=== PATIENT | female | born 1955 | race Caucasian/White ===

== ENCOUNTER 2020-07-07 10:56 | Outpatient (CLI) | payer BC, SELFPAY ==
[2020-07-07 11:12] LABS: Basophils % 0.4 %; Eosinophils # 0.2 10^3/uL (0.0-0.8); Eosinophils % 3.4 %; Hematocrit 47.1 % (37.0-47.0); Hemoglobin 15.3 g/dL (11.5-15.3); Lymphocytes # 1.3 10^3/uL (0.8-4.8); Lymphocytes % 23.9 %; Mean Corpuscular HGB Conc 32.5 g/dL (30.0-36.0); Mean Corpuscular Hemoglobin 31.5 pg (28.0-34.0); Mean Corpuscular Volume 96.9 fL (81-99); Mean Platelet Volume 11.1 fL (7.4-10.4); Monocytes # 0.4 10^3/uL (0.2-0.9); Monocytes % 6.7 %; Neutrophils # 3.51 10^3/uL (1.8-7.7); Neutrophils % 65.4 %; Nucleated Red Blood Cells % 0 %; Platelet Count 267 10^3/cmm (130-400); Red Blood Count 4.86 10^6/uL (4.1-5.3); Red Cell Distribution Width 13.8 % (12.1-15.1); White Blood Count 5.4 10^3/uL (4.0-10.0)
[2020-07-07 11:48] LABS: 25 Hydroxy Vitamin D 35 ng/mL (30-100); Alanine Aminotransferase 38 U/L (0-33); Albumin Level 4.1 g/dL (3.5-5.2); Alkaline Phosphatase 78 IU/L (35-105); Anion Gap 16.3 (5-19); Aspartate Amino Transferase 24 U/L (0-32); Blood Urea Nitrogen 13 mg/dL (8-23); C Reactive Protein 13.2 mg/L (0.0-4.9); Calcium 9.9 mg/dL (8.5-10.5); Carbon Dioxide 26 mmol/L (22-29); Chloride 103 mmol/L (98-107); Globulin 2.9 g/dL (1.3-4.6); Glomerular Filtration Rate 63.2 mL/min (90-130); Glucose 78 mg/dL (65-115); Iron 85 ug/dL (37-145); Osmolality Calculated 291 mOsm/kg (285-295); Potassium 4.3 mmol/L (3.5-5.1); Sodium 141 mmol/L (136-145); Thyroid Stimulating Hormone 4.25 uIU/mL (0.27-4.20); Total Bilirubin 0.7 mg/dL (0.15-1.2); Vitamin B12 447 pg/mL (232-1245)
[2020-07-07 13:45] LABS: Estmated Average Glucose 111; Hemoglobin A1C 5.5 % (4.0-6.0)
[2020-07-07 14:13] LABS: Free T4 Free Thyroxine 1.71 ng/dL (0.82-1.77)
== END 2020-07-07 10:57 | disposition home or self-care (01) ==
LOC: LAB 11:00
PROVIDERS: Visit Provider Electrodiagnostic Medicine
DX: R73.01 Impaired fasting glucose (principal); E78.5 Hyperlipidemia, unspecified; E03.9 Hypothyroidism, unspecified; E66.01 Morbid (severe) obesity due to excess calories; E55.9 Vitamin D deficiency, unspecified; R53.81 Other malaise; R53.83 Other fatigue
CPT/HCPCS: 80053; 82306; 82607; 83036; 83540; 84439; 84443; 85025; 86140

== ENCOUNTER 2020-07-08 11:27 | Inpatient (IN) | payer SELFPAY ==
[2020-07-08] VITALS (9 sets, daily range): BP systolic 128–188; BP diastolic 58–104; PULSE 42–109; RESP 15–27; TEMP 36.2–36.9; O2SAT 94–99; BMI 67.1
--- NOTE | 2020-07-08 11:49 | ECG_ITS ---
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 Measurements Intervals [place] Rate: 40 P: VA: QRS: -63 QRSD: 148 T: 16 QT: 489 QTc: 400 Interpretive Statements POSSIBLY SINUS BRADYCARDIA INTRAVENTRICULAR CONDUCTION DELAY MARKED BASELINE ARTIFACT, LIMITING FURTHER INTERPRETATION CRITICAL TEST RESULT No previous ECG available for comparison Electronically Signed On 07-08-2020 21:42:49 SYSTEMS TEST TECHNICIAN by Leslie Porter M.D. [id number]
--- NOTE | 2020-07-08 11:50 | XR_ITS ---
WS: [id number] PORTABLE CHEST HISTORY: dyspnea/cough COMPARISON: None available. Lungs are clear. Mild haziness over both lungs is probably due to overlying soft tissue. No pneumonia . No pleural effusion or pneumothorax. Cardiac size: Normal. Mediastinum/Aorta: Normal mediastinum. No osseous abnormality seen. XR/XR chest 1V portable [id number] IMPRESSION: Unremarkable portable chest.
[2020-07-08 12:17] LABS: Basophils % 0.3 %; Eosinophils # 0.3 10^3/uL (0.0-0.8); Eosinophils % 3.3 %; Hematocrit 46.3 % (37.0-47.0); Lymphocytes # 2.6 10^3/uL (0.8-4.8); Lymphocytes % 28.8 %; Mean Corpuscular HGB Conc 32.4 g/dL (30.0-36.0); Mean Corpuscular Hemoglobin 31.6 pg (28.0-34.0); Mean Corpuscular Volume 97.7 fL (81-99); Mean Platelet Volume 10.5 fL (7.4-10.4); Monocytes # 0.6 10^3/uL (0.2-0.9); Monocytes % 6.2 %; Neutrophils # 5.43 10^3/uL (1.8-7.7); Neutrophils % 61.1 %; Nucleated Red Blood Cells % 0 %; Platelet Count 350 10^3/cmm (130-400); Red Blood Count 4.74 10^6/uL (4.1-5.3); Red Cell Distribution Width 13.6 % (12.1-15.1); White Blood Count 8.9 10^3/uL (4.0-10.0)
[2020-07-08 12:28] LABS: Troponin(5th) Baseline 13 ng/L (0-10)
--- NOTE | 2020-07-08 12:34 | ED_ITS ---
HPI - Syncope General: Chief Complaint: Syncope Stated Complaint: Passout episode Time Seen by Provider: 07/08/20 11:45 History of Present Illness: HPI narrative: 64 yo female presents to the ER with complaints of syncopal episode off and on for the last 2 weeks. She will get some epigastric discomfort occasionally she is not had any nausea vomiting or diarrhea denies any chest pain. When she arrived in triage her heart rate was in the low 40s and she was moderately symptomatic. She states the episodes are not related to any exertion frequently happen while she is just sitting at rest and she will pass out for several seconds. She is seen her primary care doctor and had no significant findings at that visit. She denies any history of heart disease denies any known history of diabetes. She is morbidly obese. MD complaint: loss of consciousness Onset (ago): week(s) (2) Prodromal symptoms: lightheaded Witnessed: Yes - by Bystander Context: at rest Injuries sustained associated with event: none Associated symptoms: Reports abdominal pain; Deny chest pain, fever(s), headache(s), lightheadedness, nausea, short of breath, vertigo or weakness History: seizure disorder, previous syncopal episode, seizure disorder, history of CAD, pacemaker, AICD and family history of sudden Treatments prior to arrival: none Review of Systems Const: Denies: fever(s) ENMT: Denies: throat pain, ear or mastoid pain, nasal discharge or nasal congestion Card: Denies: chest pain or lightheadedness Resp: Denies: dyspnea, productive cough or non-productive cough GI: Reports: abdominal pain; Denies: nausea : Denies: flank pain, difficulty voiding, dysuria, urinary frequency or urinary urgency Skin/Breast: Denies: rash or pruritus Neuro: Denies: headache(s) or vertigo PFS ED PFSH: Medical History Dyslipidemia Hypothyroidism Physical Exam Const: COMMON NORMALS: no acute distress GENERAL APPEARANCE: cooperative and comfortable ORIENTATION/CONSCIOUSNESS: Yes awake, Yes oriented to person, Yes oriented to place and Yes oriented to time HENMT: COMMON NORMALS: normocephalic, atraumatic and hearing grossly normal bilaterally HEAD & SCALP: normocephalic and atraumatic Neck/C-Spine: COMMON NORMALS: no JVD Resp: COMMON NORMALS: normal respiratory effort, No retractions, No use of accessory muscles and clear to auscultation bilaterally AUSCULTATION: clear to auscultation bilaterally Cardio: COMMON NORMALS: no JVD, regular rate, regular rhythm and No murmurs present (Cardio) RATE: regular rate RHYTHM: regular rhythm GI: COMMON NORMALS: Soft to palpation and No hepatosplenomegaly present AUSCULTATION: Yes normoactive bowel sounds PALPATION: Yes Soft to palpation, No Tenderness to palpation present (GI), No Guarding due to palpation present (GI) and Yes No hepatosplenomegaly present Extremity: COMMON NORMALS: normal to inspection, capillary refill normal, no clubbing, cyanosis or edema, no calf tenderness and no pedal edema Neuro: SENSORIUM/ORIENTATION: Yes oriented to person, Yes oriented to place and Yes oriented to time Skin: COMMON NORMALS: no rashes or lesions noted GENERAL SKIN EXAM: no rashes or lesions noted Course Vital Signs: Vital signs: Vital Signs Temperature 98.1 F 07/09/20 00:00 Pulse Rate 91 07/10/20 04:00 Respiratory Rate 13 07/10/20 04:00 Blood Pressure 133/75 07/10/20 04:00 Pulse Oximetry 98 07/10/20 04:00 MDM - Syncope MDM Narrative: Medical decision making narrative: Discussed with cardiology as well as with hospitalist. Patient initially presented in a profound bradycardia not look like an idioventricular rhythm reviewed with Dr. Robin. Will admit for further evaluation and likely pacemaker placement. Patient converted back to a regular rhythm with a rate in the 90s for the remainder of her ER stay and remained asymptomatic reviewed the findings with her and recommendations she is agreeable to staying. Lab Data: Labs: Lab Results 07/08/20 07/08/20 07/08/20 Range/Units 12:01 12:01 12:01 WBC 8.9 (4.0-10.0) 10^3/ uL RBC 4.74 (4.1-5.3) 10^6/u L Hgb 15.0 (11.5-15.3) g/dL Hct 46.3 (37.0-47.0) % MCV 97.7 (81-99) fL MCH 31.6 (28.0-34.0) pg MCHC 32.4 (30.0-36.0) g/dL RDW 13.6 (12.1-15.1) % Plt Count 350 (130-400) 10^3/c mm MPV 10.5 H (7.4-10.4) fL Neut % (Auto) 61.1 % Lymph % (Auto) 28.8 % [place] % (Auto) 6.2 % Eos % (Auto) 3.3 % Baso % (Auto) 0.3 % Neut # (Auto) 5.43 (1.8-7.7) 10^3/u L Lymph # (Auto) 2.6 (0.8-4.8) 10^3/u L [place] # (Auto) 0.6 (0.2-0.9) 10^3/u L Eos # (Auto) 0.3 (0.0-0.8) 10^3/u L Baso # (Auto) 0.0 (0.0-0.1) 10^3/u L Nucleated RBC % (a uto) 0 % Nucleated RBCs # 0.0 /100WBC Sodium 135 L (136-145) mmol/L Potassium 4.0 (3.5-5.1) mmol/L Chloride 98 (98-107) mmol/L Carbon Dioxide 25 (22-29) mmol/L Anion Gap 16.0 (5-19) BUN 15 (8-23) mg/dL Creatinine 0.9 (0.5-0.9) mg/dL GFR Calculation 63.2 L (90-130) mL/min Glucose 138 H (65-115) mg/dL Calculated Osmolal ity 283 L (285-295) mOsm/k g Calcium 9.8 (8.5-10.5) mg/dL Total Bilirubin 0.7 (0.15-1.2) mg/dL AST 18 (0-32) U/L ALT 33 (0-33) U/L Alkaline Phosphata se 73 (35-105) IU/L Creatine Kinase 41 (26-192) U/L Troponin T Baselin e 13 H (0-10) ng/L Troponin T 120 [place] (0-10) ng/L Delta Troponin T (0-10) ABS# Total Protein 6.9 (6.6-8.7) g/dL Albumin 3.9 (3.5-5.2) g/dL Globulin 3.0 (1.3-4.6) g/dL TSH 3.94 (0.27-4.20) uIU/ mL Free T4 1.66 (0.82-1.77) ng/d L 07/08/20 Range/Units 14:04 WBC (4.0-10.0) 10^3/ uL RBC (4.1-5.3) 10^6/u L Hgb (11.5-15.3) g/dL Hct (37.0-47.0) % MCV (81-99) fL MCH (28.0-34.0) pg MCHC (30.0-36.0) g/dL RDW (12.1-15.1) % Plt Count (130-400) 10^3/c mm MPV (7.4-10.4) fL Neut % (Auto) % Lymph % (Auto) % [place] % (Auto) % Eos % (Auto) % Baso % (Auto) % Neut # (Auto) (1.8-7.7) 10^3/u L Lymph # (Auto) (0.8-4.8) 10^3/u L [place] # (Auto) (0.2-0.9) 10^3/u L Eos # (Auto) (0.0-0.8) 10^3/u L Baso # (Auto) (0.0-0.1) 10^3/u L Nucleated RBC % (a uto) % Nucleated RBCs # /100WBC Sodium (136-145) mmol/L Potassium (3.5-5.1) mmol/L Chloride (98-107) mmol/L Carbon Dioxide (22-29) mmol/L Anion Gap (5-19) BUN (8-23) mg/dL Creatinine (0.5-0.9) mg/dL GFR Calculation (90-130) mL/min Glucose (65-115) mg/dL Calculated Osmolal ity (285-295) mOsm/k g Calcium (8.5-10.5) mg/dL Total Bilirubin (0.15-1.2) mg/dL AST (0-32) U/L ALT (0-33) U/L Alkaline Phosphata se (35-105) IU/L Creatine Kinase (26-192) U/L Troponin T Baselin e (0-10) ng/L Troponin T 120 [place] 12.15 H (0-10) ng/L Delta Troponin T -0.85 L (0-10) ABS# Total Protein (6.6-8.7) g/dL Albumin (3.5-5.2) g/dL Globulin (1.3-4.6) g/dL TSH (0.27-4.20) uIU/ mL Free T4 (0.82-1.77) ng/d L Discharge Plan Discharge Patient Disposition: Admitted As Inpatient Admit Provider: Jona Cristobal Clinical Impression: Bradycardia, Syncope, Hypothyroidism Condition: Stable Coding Level of Care Code ED Stenotype Operator for Kelli Ramirez
[2020-07-08 12:36] LABS: Alanine Aminotransferase 33 U/L (0-33); Albumin Level 3.9 g/dL (3.5-5.2); Alkaline Phosphatase 73 IU/L (35-105); Aspartate Amino Transferase 18 U/L (0-32); Blood Urea Nitrogen 15 mg/dL (8-23); Calcium 9.8 mg/dL (8.5-10.5); Carbon Dioxide 25 mmol/L (22-29); Chloride 98 mmol/L (98-107); Creatine Phosphokinase 41 U/L (26-192); Glomerular Filtration Rate 63.2 mL/min (90-130); Glucose 138 mg/dL (65-115); Osmolality Calculated 283 mOsm/kg (285-295); Sodium 135 mmol/L (136-145); Thyroid Stimulating Hormone 3.94 uIU/mL (0.27-4.20); Total Bilirubin 0.7 mg/dL (0.15-1.2); Total Protein 6.9 g/dL (6.6-8.7)
--- NOTE | 2020-07-08 12:39 | CT_ITS ---
WS: [id number] CT ABDOMEN AND PELVIS WITH CONTRAST HISTORY: Abdominal pain with bloating and pressure after eating. TECHNIQUE: Imaging performed of the abdomen and pelvis with IV contrast. Single phase imaging of the abdomen. Coronal and sagittal reformats are submitted. All CT scans at [facility] use at least one of these dose optimization techniques: automated exposure control; mA and/or kV adjustment per patient size (includes targeted exams where dose is matched to clinical indication); or iterativ e reconstruction. IV CONTRAST: Omnipaque 350; 95 mL IV. Oral contrast: No DLP: 1764.64 mGy.cm COMPARISON: None available. Lower thorax: 7 mm RIGHT pulmonary lymph node. Heart is normal size. No hiatal hernia. Liver/biliary system: Normal size with no intrahepatic dilatation. Gallbladder: Gallbladder is normally distended and contains a large calcification measuring 2.7 cm. N o adjacent inflammation or fluid. No bile duct dilatation. Pancreas: Mildly lobulated pancreas. No mass identified. Spleen: Normal. Adrenal glands: Normal. Right kidney: Normal. Left kidney: Cortical thinning lower pole LEFT kidney with a few calcifications in the cortical thinn ing. No solid mass or obstruction. Aorta: Normal. Lymphadenopathy: None. Free fluid: None. GI tract: Appendix is not definitely visualized. No GI tract obstruction. Numerous diverticula in the descending and sigmoid colon. No acute inflammation. Abdominal wall: Unremarkable abdominal wall. No hernia. Pelvis: Prior hysterectomy. Negative urinary bladder. No free fluid or adenopathy. Bones: Mild degenerative disc disease at L5-S1. CT/CT abdomen pelvis w con* [id number] IMPRESSION: 1. Cholelithiasis without acute cholecystitis. There is a large 2.7 cm stone i n the gallbladder lumen. 2. Distal colonic diverticulosis without evidence for acute diverticulitis. 3. No ascites or adenopathy.
[2020-07-08] MEDS: iohexol 350 mg/mL 100 mL Btl IV (13:12)
--- NOTE | 2020-07-08 13:49 | ECG_ITS ---
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 Measurements Intervals [place] Rate: 78 P: 9 AK: 221 QRS: -45 QRSD: 156 T: 28 QT: 419 QTc: 478 Interpretive Statements SINUS RHYTHM WITH SINUS ARRHYTHMIA WITH FIRST DEGREE AV BLOCK RIGHT BUNDLE BRANCH BLOCK [120+ ms QRS DURATION, UPRIGHT V1, 40+ ms S IN I/aVL/V4/V5/V6] LEFT ANTERIOR FASCICULAR BLOCK [QRS AXIS <= -45, QR IN I, RS IN II] POSSIBLE ANTERIOR MYOCARDIAL INFARCTION , OF INDETERMINATE AGE [30 ms Q WAVE IN V3/V4, OR R < 0.2 mV IN V4] Compared to ECG 07/08/2020 11:45:40 First degree AV block now present Right bundle-branch block now present Left anterior fascicular block now present Myocardial infarct finding now present Idioventricular rhythm no longer present Electronically Signed On 07-08-2020 21:55:19 HOURLY MANAGER by Leslie Porter M.D. [id number]
[2020-07-08 14:01] LABS: Free T4 Free Thyroxine 1.66 ng/dL (0.82-1.77)
[2020-07-08 14:30] LABS: Troponin 5 2HR 12.15 ng/L (0-10)
[2020-07-08 14:34] LABS: Troponin 5 2HR Delta -0.85 ABS# (0-10)
--- NOTE | 2020-07-08 15:56 | PM.CONSULT ---
Providers/Reason For Consult Consulting Physican/Specialty*: Michael Lopez MD/ Cardiology Reason for Consult*: Bradycardia/syncope Requesting Physcian: Dr Fenton Attending Physician: Dr Cristobal History of Present Illness History of Present Illness Melony Che is a 64 year old female with PMH of dyslipidemia and hypothyroidism presented to the ER with 2 weeks of intermittent syncopal episodes. According to patient, she has been noticing multiple syncopal episodes that started last week Tuesday. Mostly happen at night.She can feel these episodes coming. Sometimes associated with dizziness. No falls. She has epigastric discomfort for about the same duration and occasional right sided chest pain. Today she was also having shaking episodes. In the ER she had bradycardic episode and EKG had significant artifact but likely had a high grade AV block. Troponin negative. Review of Systems Eyes: Denies: change in vision ENMT: Denies: throat pain Card: Reports: chest pain, lightheadedness and syncope Resp: Denies: dyspnea GI: Reports: abdominal pain Neuro: Denies: headache(s) Psych: Denies: anxiety Endo: Denies: polyuria Meds/Allergies Home Medications and Allergies Home Medications Medication Instructions Recorded Confirmed Last Taken Type atorvastatin 40 mg PO QPM 07/08/20 07/08/20 07/04/20 22:00 History levothyroxine 50 mcg PO DAILY 07/08/20 07/08/20 07/08/20 07:00 History Allergies Allergy/AdvReac Type Severity Reaction Status Date / Time bacitracin Allergy Unknown Verified 07/08/20 11:38 [From Neosporin ([id number])] latex Allergy ALGY-Rash Verified 07/08/20 11:38 neomycin Allergy Unknown Verified 07/08/20 11:38 [From Neosporin ([id number])] polymyxin B Allergy Unknown Verified 07/08/20 11:38 [From Neosporin ([id number])] PFSH Acute PFSH: Medical History (Updated 07/08/20 @ 22:36 by Michael Lopez M.D) Dyslipidemia Hypothyroidism Vitals/I&O/Wt Last Vital Signs Temp 97.1 F L 07/08/20 11:33 Pulse 77 07/08/20 15:12 Resp 15 07/08/20 15:12 BP 171/97 07/08/20 15:12 Pulse Ox 97 07/08/20 15:12 Weight last 48 hrs Weight 344 lb Physical Exam Const: COMMON NORMALS: patient oriented x3 HENMT: COMMON NORMALS: normocephalic HEAD & SCALP: normocephalic Eye: COMMON NORMALS: Equal, round and reactive pupils present PUPIL: Yes Equal, round and reactive pupils present Neck/C-Spine: COMMON NORMALS: full ROM Resp: COMMON NORMALS: normal respiratory effort and clear to auscultation bilaterally AUSCULTATION: clear to auscultation bilaterally Cardio: COMMON NORMALS: regular rhythm, S1 normal heart sound present and S2 normal heart sound present RHYTHM: regular rhythm HEART SOUNDS: S1 normal heart sound present and S2 normal heart sound present GI: COMMON NORMALS: Normal to inspection, nondistended, normoactive bowel sounds present and Soft to palpation PALPATION: Yes Soft to palpation Extremity: NARRATIVE EXTREMITY EXAM: Has significant bilateral lymphedema Neuro: COMMON NORMALS: patient oriented x3 A&P Assessment and plan (1) Syncope: Status: Acute (2) Hypothyroidism: Status: Acute (3) Dyslipidemia: Status: Acute (4) Bradycardia: Status: Acute Patient has been having intermittent syncopal episodes. Was found to have significant bradycardia on presentation. Her initial EKG had significant artifact but likely high degree AV block/third degree av block however that was transient and heart rates improved to 80-90s. Given her syncopal episodes, likely AV block and chest pain, will proceed with coronary angiography tomorrow morning Tele monitoring. If heart rates drop and telt shows high degree AV block, will proceed will temporary pacemaker. Keep pacing pads on. Dopamine in case of significant bradycardia and AV block. Avoid rate controlling agents. NPO past midnight Thank you for involving us with care of this patient. We will continue to follow. Please call with questions Coding Level of Care Code Acute Locomotive Crane Operator Helper for [facility] Fwd Diagnoses Syncope R55 Hypothyroidism E03.9 Dyslipidemia E78.5 Bradycardia R00.1
--- NOTE | 2020-07-08 16:34 | PC.NURSE ---
report given to deep becerra
--- NOTE | 2020-07-08 17:24 | PM.HP ---
Providers/Chief Complaint Admitting Physician: Jona Cristobal MD Chief Complaint: Passout episodes History of Present Illness Melony Che is a 64 year old female with PMH of DLD and hypothyroidism came in with c/o recurrent episodes of passing out started about a week back.Each episodes last about 15-20 secs accompanied with shaking of body followed by regain of consciousness,she deny any confusion after regaining consciousness.She is also complaining of rt sided chest tightness.She Upon arrival in the ER she was worked up for recurrent syncopal episodes. 1st EKG which was done is markedly limited by artifacts. Subsequent EKG : SINUS RHYTHM WITH SINUS ARRHYTHMIA WITH FIRST DEGREE AV BLOCK. RIGHT BUNDLE BRANCH BLOCK. LEFT ANTERIOR FASCICULAR BLOCK. SINUS RHYTHM WITH FIRST DEGREE AV BLOCK LEFT AXIS DEVIATION [QRS AXIS < -30] . RIGHT BUNDLE BRANCH BLOCK. C.T head without : No evidence of active or acute intracranial pathologic process, hemorrhage, or trauma. C.T Abdomen and Pelvis with contrast : Cholelithiasis without acute cholecystitis. There is a large 2.7 cm stone in the gallbladder lumen. Pertinent Labs : Troponin : Baseline : 13, 2H : 12.15 2H D: -0.85, 6H : 11.74 , 6H D: -1.26 TSH : 3.94, Free T4 : 1.66 Review of Systems Const: Denies: fever(s), chills, body aches, change in appetite or diaphoresis Card: Denies: palpitations, edema, swelling of feet/ankles, orthopnea or leg pain with exertion Resp: Denies: dyspnea, productive cough, wheezing or pain on inspiration GI: Denies: diarrhea or constipation : Denies: flank pain Musc: Denies: back pain, extremity pain or extremity swelling Neuro: Denies: headache(s) or difficulty walking Medications/Allergies Home Medications Medication Instructions Recorded Confirmed Last Taken Type atorvastatin 40 mg PO QPM 07/08/20 07/08/20 07/04/20 22:00 History levothyroxine 50 mcg PO DAILY 07/08/20 07/08/20 07/08/20 07:00 History Allergies Allergy/AdvReac Type Severity Reaction Status Date / Time bacitracin Allergy Unknown Verified 07/08/20 11:38 [From Neosporin (zav-mat-oyivy)] latex Allergy ALGY-Rash Verified 07/08/20 11:38 neomycin Allergy Unknown Verified 07/08/20 11:38 [From Neosporin (eyb-thm-gkdra)] polymyxin B Allergy Unknown Verified 07/08/20 11:38 [From Neosporin (gve-mtg-[id number])] Vitals/I&O/Wt Last Vital Signs Temp 97.1 F L 07/08/20 11:33 Pulse 77 07/08/20 15:12 Resp 15 07/08/20 15:12 BP 171/97 07/08/20 15:12 Pulse Ox 97 07/08/20 15:12 Weight last 48 hrs Weight 156.036 kg Physical Exam Const: COMMON NORMALS: patient oriented x3 HENMT: COMMON NORMALS: normocephalic, atraumatic, hearing grossly normal bilaterally and external ears normal HEAD & SCALP: normocephalic and atraumatic EXTERNAL EAR: Yes external ears normal Eye: COMMON NORMALS: no scleral icterus GENERAL EYE: appearance normal, both eyes and all related structures Chest: COMMONS NORMALS: normal inspection of the chest and normal palpation of entire chest wall CHEST: Yes Symmetrical chest wall rise Resp: COMMON NORMALS: normal respiratory effort, No retractions, No use of accessory muscles and clear to auscultation bilaterally EFFORT & INSPECTION: Yes symmetric chest movement AUSCULTATION: clear to auscultation bilaterally Cardio: COMMON NORMALS: regular rate, regular rhythm, S1 normal heart sound present, S2 normal heart sound present, No gallops present (Cardio), No murmurs present (Cardio), No rub (Cardio) and Peripheral pulses 2+ throughout RATE: regular rate RHYTHM: regular rhythm HEART SOUNDS: S1 normal heart sound present and S2 normal heart sound present PERIPHERAL PULSES: Peripheral pulses 2+ throughout GI: COMMON NORMALS: Normal to inspection, nondistended, normoactive bowel sounds present, Soft to palpation, non-tender, No hepatosplenomegaly present and no masses AUSCULTATION: Yes normoactive bowel sounds PALPATION: Yes Soft to palpation and Yes No hepatosplenomegaly present RECTAL EXAM: deferred Extremity: COMMON NORMALS: no clubbing, cyanosis or edema and no pedal edema Neuro: COMMON NORMALS: patient oriented x3 Data : 07/08/20 12:01 07/08/20 12:01 A&P Assessment and plan (1) Syncope: C.T Head without contrast : No evidence of active or acute intracranial pathologic process, hemorrhage, or trauma 2D Echo Carotid Doppler B/L L/E Doppler vein CTA chest with contrast. Tele Cardiology wants to proceed with CAG to r/o ischemia as a possible cause. Status: Acute (2) Hypothyroidism: Continue Levothyroxine Status: Acute (3) Dyslipidemia: Status: Acute Additional A&P Information DVT PPX: Lovenox 40 mg sc Daily Code Status :Full code Disposition :Home Attestations Medical Necessity Statement*: Patient needs to be in hospital for the evaluation and management of recurrent syncope.Anticipated length of stay greater then 2 midnights. Coding Level of Care Code Acute Supervisor Cell Operation for [facility] Fwd Diagnoses Syncope R55 Hypothyroidism E03.9 Dyslipidemia E78.5
--- NOTE | 2020-07-08 17:49 | ECG_ITS ---
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 Measurements Intervals [place] Rate: 86 P: -10 WI: 220 QRS: -37 QRSD: 159 T: 32 QT: 440 QTc: 528 Interpretive Statements SINUS RHYTHM WITH FIRST DEGREE AV BLOCK LEFT AXIS DEVIATION [QRS AXIS < -30] RIGHT BUNDLE BRANCH BLOCK [120+ ms QRS DURATION, UPRIGHT V1, 40+ ms S IN I/aVL/V4/V5/V6] ANTEROSEPTAL MYOCARDIAL INFARCTION , OF INDETERMINATE AGE [40+ ms Q WAVE IN V1-V4] Compared to ECG 07/08/2020 12:57:56 Left-axis deviation now present Sinus arrhythmia no longer present Left anterior fascicular block no longer present Myocardial infarct finding still present Electronically Signed On 07-08-2020 17:51:11 BUILDING MAINTENANCE ENGINEER by Leslie Porter M.D. [id number]
--- NOTE | 2020-07-08 17:51 | CTR_ITS ---
PROCEDURE INFORMATION: Exam: CT Head Without Contrast Exam date and time: 07/08/2020 5:52 PM Age: 64 years old Clinical indication: Syncope and collapse TECHNIQUE: Imaging protocol: Computed tomography of the head without contrast. Total images: 186 Radiation optimization: All CT scans at this facility use at least one of these dose optimization techniques: automated exposure control; mA and/or kV adjustment per patient size (includes targeted exams where dose is matched to clinical indication); or iterative reconstruction. COMPARISON: No relevant prior studies available. RADIATION DOSE METRICS: Total DLP (mGy-cm): 768.38 FINDINGS: Brain: Unremarkable. No hemorrhage. Unremarkable white matter. No mass effect. Cerebral ventricles: No ventriculomegaly. Bones/joints: Unremarkable. No acute fracture. Paranasal sinuses: Inclusion cyst left maxillary sinus. Mild chronic left ethmoid sinusitis. No evidence for active paranasal sinus disease. Mastoid air cells: Visualized mastoid air cells are well aerated. Soft tissues: Unremarkable. CT/CT head wo con* [id number] IMPRESSION: No evidence of active or acute intracranial pathologic process, hemorrhage, or trauma. Radiation Dose CTDIVOL = (mGy): DLP = 768.38 (mGy-cm)
[2020-07-08] MEDS: enoxaparin 40 mg/0.4 mL Syringe SUBCUT (18:10)
[2020-07-08] MEDS: hyDRALAzine 25 mg Tablet PO ×2 (18:14→19:47)
[2020-07-08 18:18] LABS: Magnesium 2.2 mg/dL (1.7-2.3); Troponin 5 6HR 11.74 ng/L (0-10)
[2020-07-08 18:25] LABS: Troponin 5 6HR Delta -1.26 ng/L (0-12)
--- NOTE | 2020-07-08 18:46 | PC.NURSE ---
PATIENT TOES BILATERALLY NOTED TO BE REDDENED AND COOL TO THE TOUCH. CAPILLARY REFILL EXACTLY [address] SILVA NOTIFIED. NO NEW ORDERS. SCD'S ORDERED, HOWEVER SIZE LARGE SCDS DO NOT FIT HER CALVES AND THEY ARE THE LARGEST SIZE IN HOUSE. DR. LEYVA NOTIFIED.
[2020-07-08] MEDS: acetaminophen 325 mg Tablet 650 MG PO (19:47)
[2020-07-08] MEDS: atorvastatin 40 mg Tablet PO (19:47)
--- NOTE | 2020-07-08 22:16 | PC.NURSE ---
Dr. Mcadams and Dr. Larsen notified of patient going into third degree heart block for short period of time, then having 3 significant pauses on the monitor. Patient stated I could feel it. Dr. Mcadams came to see patient. Dr. Larsen ordered to keep crash cart at bedside and keep pacer pads on patient in case of need of use. Patient is currently in SR at heart rate of 87.
[2020-07-09] VITALS (113 sets, daily range): BP systolic 76–196; BP diastolic 46–105; PULSE 0–103; RESP 0–36; TEMP 36.7; O2SAT 89–100
--- NOTE | 2020-07-09 03:36 | PC.NURSE ---
Upon getting up to bedside commode, patient has gone into 3rd degree heart block. This happened earlier in shift as well after getting patient up to bedside commode and doctors were notified.
--- NOTE | 2020-07-09 03:56 | PC.NURSE ---
Dr. Larsen notified of patient in a third degree block heart rate in the 30s-40s for about 10-15 minutes. Ordered to start low dose dopamine drip and transfer patient to ICU.
[2020-07-09] MEDS: DOPamine drip 400 MG/250 ML PREMIX 17.8 MG IV (04:08)
[2020-07-09 05:52] LABS: Basophils % 0.6 %; Eosinophils # 0.2 10^3/uL (0.0-0.8); Eosinophils % 2.7 %; Hematocrit 43.4 % (37.0-47.0); Hemoglobin 14.3 g/dL (11.5-15.3); Lymphocytes # 1.4 10^3/uL (0.8-4.8); Lymphocytes % 19.4 %; Mean Corpuscular HGB Conc 32.9 g/dL (30.0-36.0); Mean Corpuscular Hemoglobin 31.4 pg (28.0-34.0); Mean Corpuscular Volume 95.4 fL (81-99); Mean Platelet Volume 10.8 fL (7.4-10.4); Monocytes # 0.4 10^3/uL (0.2-0.9); Monocytes % 5.2 %; Neutrophils # 5.15 10^3/uL (1.8-7.7); Neutrophils % 71.8 %; Nucleated Red Blood Cells % 0 %; Platelet Count 265 10^3/cmm (130-400); Red Blood Count 4.55 10^6/uL (4.1-5.3); White Blood Count 7.2 10^3/uL (4.0-10.0)
[2020-07-09 06:06] LABS: Blood Urea Nitrogen 14 mg/dL (8-23); Calcium 9.4 mg/dL (8.5-10.5); Carbon Dioxide 25 mmol/L (22-29); Chloride 102 mmol/L (98-107); Glomerular Filtration Rate 84.5 mL/min (90-130); Glucose 120 mg/dL (65-115); Osmolality Calculated 286 mOsm/kg (285-295); Sodium 137 mmol/L (136-145)
[2020-07-09 06:07] LABS: Chol HDL Ratio 3.78 mg/dL (0.0-4.40); Cholesterol 155 mg/dL (0-200); HDL Cholesterol 41 mg/dL (60-100); LDL Cholesterol Calculated 92 mg/dL (50-129); LDL HDL Ratio 2.24 RATIO (0.00-3.22); Triglycerides 110 mg/dL (0-150)
[2020-07-09 06:13] LABS: Estmated Average Glucose 103; Hemoglobin A1C 5.2 % (4.0-6.0)
[2020-07-09] MEDS: sodium chloride 0.9% 1,000 ML 50 ML IV (06:20)
[2020-07-09] MEDS: diphenhydrAMINE 50 mg Capsule PO (06:21)
--- NOTE | 2020-07-09 06:35 | PC.NURSE ---
ASSUMING CARE Patient brought to ICU from CSU within 0400 hour. Patient is bradycardia and on dopamine drip at 3 mcg/kg/min. Patients MAP greater than 65. Patient already prepped for 0700 cath and additional IV access established via ultrasound machine.
[2020-07-09 06:36] LABS: Anion Gap 13.6 (5-19); Potassium 3.6 mmol/L (3.5-5.1)
--- NOTE | 2020-07-09 06:37 | PC.NURSE ---
SHIFT SUMMARY Patient has been in bed since arrival to unit. See previous note. Patient prepped for cath this AM. Cousin, Kitty Patino, called to check on her. Not listed, but patient gave verbal permission for nurse to give her information. Patients also called to check on her also and states he will come visit from 11-6 today. Both family members notified of cath at 0700 and possible need for pacemaker.
--- NOTE | 2020-07-09 07:00 | XACV_ITS ---
Exam Room: [facility] Ht: 152 cm Wt: 158 kg BSA: 2.71 m2 Gender: Female : 1955 Any Known Allergies: Other Exam Priority: Routine Procedure(s): Procedure Description: Diagnostic procedure Procedure Description: Left Heart Catheterization Procedure Description: Miscellaneous Procedure Description: Temporary Pacemaker Insertion Procedure Description: Coronary Angiography Diagnostic Cath Status: Urgent Diagnostic Findings * Indication: Patient has been having multiple episodes of syncopal episodes and found to have high degree AV block. Plan for coronary angiography and placement of temporary pacemaker. * No significant disease noted in the Left Main, LAD, Circumflex, or RCA coronary arteries. * Coronary angiography shows right dominance. Interventional Findings * Temporary pacemaker placement: After performing coronary angiography we proceeded with placement of temporary pacemaker. We obtained access with ultrasound in the right femoral vein. We placed a 6 Italian sheath. Temporary pacemaker wire was advanced under fluoroscopic guidance and was placed in the RV. Pacemaker was checked at a rate of 70 bpm and output of 10 MA. Continuous pacing was noted. We sutured the sheath and the pacemaker wire in place. Heart rate was set at back up rate of 50 bpm. Patient left the School Administrator in a stable condition.. Conclusions 1. Successful placement of temporary pacemaker. 2. No significant disease noted in the Left Main, LAD, Circumflex, or RCA coronary arteries. Recommendations * Transfer back to ICU. * Consult Dr Lam for placement of permanent pacemaker as patient has high degree AV block with multiple syncopal episodes and no reversible causes. * Close monitoring of rhythm for loss of capture in the ICU. Interventional RX Recommendation: medical therapy and/or counseling Diagnostic RX Recommendation: medical therapy and/or counseling Pressures Phase:Rest AO : 135 / 57 ( 75 ) @ 1:40:00 AM 88 / 57 ( 68 ) @ 1:41:00 AM 118 / 41 ( 49 ) @ 1:49:00 AM 126 / 58 ( 76 ) @ 1:50:00 AM 98 / 63 ( 75 ) @ 1:50:00 AM 117 / 66 ( 78 ) @ 1:50:00 AM 0 / -2 ( -2 ) @ 1:54:00 AM LV : 118 / 18 / @ 1:50:00 AM 118 / 15 / @ 1:50:00 AM Valves Phase:DefaultPhase AV : 0.0 @ 8:08:11 AM AV Mean Gradient: 0.0 @ 8:08:11 AM Clinical Evaluation EBL: 5mL-10mL Procedural Details Procedure Consent Obtained. Pre-Procedure Time Out. Identified patient by full name and date of as verbalized by the patient/guarantor. Does the consent match the physician's order: Yes. Accurate & Complete Informed Consent: Yes. Inpatient/Outpatient History & Physical on Chart: Yes. If H&P is completed, is and addenduem needed: No; If yes, is the addendum complete: N/A. Visualize and Verify Site with Patient/Guarantor: N/A. Relevant Radiology Images available: N/A. Pre-op teaching completed and patient verbalized understanding. The risks, benefits, and alternatives of sedation and/or procedure were discussed by physician. The patient agrees to continue. Procedure started. [facility] Clinical Fraility Score: 3: Managing Well. School Administrator Indications: Other- complete heart block. Chest Pain Symptom Assessment: Atypical Angina. Cardiovascular Instability: No. Correct patient, site and procedure confirmed by cath team. PERRLA. Strong, equal hand circular saw edge fuser bilaterally. Lungs clear x 5 lobes. IV Site on Arrival: 20 gauge in the right anticubital. IV Site on Arrival: 20 gauge in the left anticubital. IV Fluids: 0.9% NaCl at KVO. 0 mL infused prior to labor service representative. Pre Procedural Pulses: right radial was 3+. Oxygen started at 2liters/min via nasal canula. bilateral groins was prepped with chloroprep then draped in the usual sterile fashion. AP pads applied to patient. Physician notified. Baseline sample Acquired. HR: 50 BPM. Dopamine 3mcg/kg/min. Dopamine increased to 4 mcg/kg/min. Physician arrived. Physician scrubbed in. Immediate Pre-Procedure Time Out. Equipment: 6F - Radial. Cardiac Cath Pack. ACIST Manifold Kit Model BT 2000. Heparinized Saline (2 units/mL), 1000 mL bag. Correct Patient: Yes; Correct Procedure: Yes; Correct Site: Yes; Correct Patient Position: Yes; Correct Supplies: Yes; Dried Flammable Prep: Yes; Blood Products Available: N/A;. Lidocaine 1% infiltrated to the right radial. Arterial access obtained. Lidocaine 1% infiltrated to the right groin. Physician will be placing temporary pacemaker using right femoral vein. Venous access obtained with a micropuncture set. Pt placed on oxymask. A 5 eritrean TIG catheter in over wire through right radial sheath. Multiple views taken of left coronary artery. Catheter redirected to the RCA. Catheter removed over the exchange wire. A 5 eritrean JR4 catheter in over wire. Multiple views taken of right coronary artery. EDP Sample taken: LV 118/18,40; HR: 52 BPM; SpO2: 92%. Pullback taken: LV 118/15,41; AO 126/58(76); Mean: 0mmHg, Peak to Peak: 0mmHg, SEP: 2sec/min; HR: 38 BPM; SpO2: 91%. Catheter removed over the exchange wire. Temporary pacemaker inserted through right femoral venous sheath. Pacemaker attached. Set to Async. Rate: 60. MA: 2. TEMPORARY PACEMAKER: Lot #[id number]. MA changed to 1. MA changed to 0.5. MA changed to 1. Rate decreased to 50. Physician scrubbed out. A TR Band was successful obtaining hemostatsis at the Right Radial artery insertion site. TR band placed. Hemostasis obtained. Venous Sheath(s) sutured into position with 2-0 silk and sterile 4x4's and Op-site applied over the site. No oozing or signs and symptoms of hematoma noted. A Suture was successful obtaining hemostatsis at the Right Femoral vein insertion site. Post Procedure: Pulses reassessed and unchanged. PERRLA. Strong, equal hand circular saw edge fuser bilaterally. No VTE prophylaxis required. Medication's Wasted: Lidocaine 1% = 2 mL. Medication's Wasted: Heparin = 3000 units. Medication's Wasted: Other = fentanyl 75 mcg. Total IV fluids: 50 mL. Medication's Wasted: Nitro = 49.8 mg. Contrast type used: Omnipaque 300 mgI/mL, 500 mL bottle. Post-op diagnosis: complete heart block, non obstructive CAD. Complications: none. Estimated blood loss: 5mL-10mL. Procedure completed. Patient transferred by bed to ICU. Vital chart was stopped. Access Site Site: Right Radial artery Sheath Size: 6 Fr Hemostasis Method: TR Band Hemostasis Success: Successful Site: Right Femoral vein Sheath Size: 6 Fr Hemostasis Method: Suture Hemostasis Success: Successful Procedure Medications Start: 7:23 AM Stop: 7:23 AM Medication: Versed Amount: 1 mg Route: I.V. Start: 7:23 AM Stop: 7:23 AM Medication: Fentanyl Amount: 25 mcg Route: I.V. Start: 7:27 AM Stop: 7:27 AM Medication: Versed Amount: 1 mg Route: I.V. Start: 7:30 AM Stop: 7:30 AM Medication: Nitrogylcerin Amount: 200 mcg Route: I.A. Start: 7:40 AM Stop: 7:40 AM Medication: Heparin Amount: 3000 units Route: I.V. I, the attending physician, have reviewed and verified all procedure medications. Yes, all medications given per verbal order History/Risk Factors Hypertension: No Dyslipidemia: Yes Peripheral Arterial Disease (PAD): No Myocardial Infarction (DC): No Obesity: No Renal Disease: No Prior Interventions PCI: No CABG: No Valve Surgery: No Report Signatures Finalized by Michael Lopez MD on 07/11/2020 05:48 PM
--- NOTE | 2020-07-09 07:00 | USCV_ITS ---
Melony Che Age: 64 Gender: F : 1955 Exam Date: 07/09/2020 06:25 Ordering Phys: Jona Cristobal MD Technologist: Nicholas Perry [place] [facility] [place]: BLE SWELLING HISTORY: Lower extremity swelling. PROCEDURES: Venous duplex imaging was performed in bilateral lower extremities. The following venous structures were evaluated: common femoral vein, profunda vein, proximal portion of the greater saphenous vein, superficial femoral vein, and the popliteal vein. In addition, the posterior tibial veins were evaluated. Serial compression, augmentation maneuvers, and spectral Doppler flow evaluation were performed. FINDINGS: Normal 2-D Doppler and augmentation and compressibility throughout the lower extremity venous structures. Additional imaging through the proximal calf veins also reveals no thrombus. Limited evaluation of the greater saphenous vein is patent with no thrombus.. Examination was technically limited due to body habitus. CONCLUSIONS No DVT bilateral lower extremities. Quality limited by body habitus. Dr. Chayo Barajas DO (Electronically Signed) Final Date: 09 July 2020 08:33 S
--- NOTE | 2020-07-09 07:00 | USCV_ITS ---
Melony Che Age: 64 Gender: F : 1955 Exam Date: 07/09/2020 06:36 Ordering Phys: Jona Cristobal MD Technologist: Nicholas Perry Exam Location: [facility] [place] Indication: SYNCOPE Risk Factors: Previous Vascular Surgery: Right Brachial BP: / Left Brachial BP: / Right Left Velocity (cm/s) Spectral Plaque Velocity (cm/s) Spectral Plaque Syst/Diast Broadening Syst/Diast Broadening 79.40/ 12.10 Prox CCA 87.10 / 7.70 79.40/ 12.10 Mid CCA 93.70 / 13.20 90.40/ 14.30 Distal CCA 94.80 / 14.30 88.20/ 17.60 Prox ICA 109.20/ 19.80 79.40/ 14.30 Mid ICA 100.30/ 26.50 88.20/ 25.40 Distal ICA 79.70 / 21.10 102.50 ECA 118.00 0.98 ICA/CCA 1.15 Antegrade Vertebral Antegrade 45.10/ 7.00 cm/s 44.00/ 10.10 cm/s Tri Subclavian Tri 116.9 130.1 0 0 FINDINGS Comparison: none available. No significant elevation of systolic or diastolic velocities. Waveforms are normal. Minimal bilateral, intimal thickening with no elevation of velocity. CONCLUSIONS Bilateral ICA stenosis less than 50%. Minimal carotid atherosclerosis. Dr. Chayo Barajas DO (Electronically Signed) Final Date: 09 July 2020 08:31 S
--- NOTE | 2020-07-09 07:05 | PC.NURSE ---
0700-to clinical laboratory medical director.
--- NOTE | 2020-07-09 08:27 | PC.NURSE ---
recd.from ccl with temporary pacer in right groin. rate 60. sensitivity 5 output at 1.
--- NOTE | 2020-07-09 09:21 | PC.CHAP ---
Pastoral Care Encounter/Spiritual Assessment Type of Contact [] Declined volunteer services director visit [] Patient/Family/Request visit [] Outpatient visit [] Follow-up visit [] Physician referral [] Code/Alert [x] Routine visit [] Staff referral [] Actively dying [] Patient sleeping [] Family support [] [] Out of room [] Palliative care [] [] Receiving care in room [] Pre-surgical visit [] Trauma [] Long length of stay [x] ICU visit [] Other: Relational/Emotional Strength [] Patient feels connected with others/family/visitors/staff [] Distress [] Loneliness/isolation [] Abandonment Spirituality of Patient [] Person of [place] [] Attends Jainism of their [place] [] Believes in Prayer [] Reads Bible or Gnosticism materials [] There are Spiritual issues to be addressed Solar Installation Supervisor Interventions [x] Prayer [] Active listening [] Non-anxious presence [] Spiritual/emotional support [] Crisis/trauma care [] Spiritual counseling [] Bereavement support [] Provided bereavement packet [] Provided Bible/devotional materials [] Provided toy/stuffed animal, coloring book to patient or family member [] Provided Communion [] Anointing/[place] [] Salvation [x] Completed spiritual assessment [] Other: Impact on Illness or Injury [] Angry [] Fearful [] Anxious [] Often cries [] Exhaustion [] Unable to work [] Unable to attend oriental orthodox [] Unable to walk/stand [] Unable to read [] Unable to drive [] Unable to eat/drink [] Unable to sleep [] Unable to be with family [] Patient intubated [] Other: Summary Time spent with patient
--- NOTE | 2020-07-09 09:36 | PM.CONSULT ---
Providers/Reason For Consult Consulting Physican/Specialty*: Dr. Lam/cardiothoracic surgery Reason for Consult*: Third-degree AV block/temporary pacemaker dependent Requesting Physcian: Dr. Lopez Attending Physician: Jona Cristobal MD History of Present Illness History of Present Illness Melony Che is a 64 year old female whom I was consulted on following left heart catheterization this morning as part of an evaluation for highly symptomatic, recurrent, and refractory episodes of bradycardia, which by history appear to have been occurring for the past week. Patient reports episodes of blacking out lasting up to 3 to 4 seconds as witnessed by her . This was indeed noted here at [facility]. She was evaluated by Dr. Lopez and left heart catheterization was performed this morning Which Revealed No Obstructive Coronary Artery Disease. She haD developed some episodes of bradycardia and sinus pauses last night while on the telemetry arnold which resulted in her being transferred to the ICU for continued monitoring prior to her catheterization this morning. During that procedure, she developed heart block with prolonged sinus pauses. A right femoral transvenous pacemaker has been placed. She is now resting comfortably in the ICU. I have been consulted for evaluation for dual chamber permanent pacemaker implantation. Review of Systems Const: Denies: fever(s), chills, change in appetite, change in weight, fatigue or night sweats Eyes: Denies: change in vision or blurry vision ENMT: Denies: odynophagia or hoarseness Card: Reports: lightheadedness, syncope, pre-syncope, dyspnea on exertion and orthopnea; Denies: chest pain, palpitations, irregular heart rhythm or edema Resp: Denies: dyspnea or productive cough GI: Denies: abdominal pain, nausea, vomiting, dysphagia, heartburn or change in bowel habits : Denies: dysuria, urinary frequency, urinary urgency or urinary hesitancy Musc: Denies: extremity pain or extremity swelling Skin/Breast: Denies: rash Neuro: Reports: dizziness; Denies: headache(s), numbness in extremities, weakness in extremities or sensory changes Psych: Denies: anxiety, depression or change in appetite Endo: Denies: polyuria, polydipsia or cold intolerance [place]/Lymph: Denies: easy bruising, easy bleeding, petechiae or enlarged lymph nodes Meds/Allergies Home Medications and Allergies Home Medications Medication Instructions Recorded Confirmed Last Taken Type atorvastatin 40 mg PO QPM 07/08/20 07/08/20 07/04/20 22:00 History levothyroxine 50 mcg PO DAILY 07/08/20 07/08/20 07/08/20 07:00 History Allergies Allergy/AdvReac Type Severity Reaction Status Date / Time bacitracin Allergy Unknown Verified 07/08/20 11:38 [From Neosporin ([id number])] latex Allergy ALGY-Rash Verified 07/08/20 11:38 neomycin Allergy Unknown Verified 07/08/20 11:38 [From Neosporin ([id number])] polymyxin B Allergy Unknown Verified 07/08/20 11:38 [From Neosporin ([id number])] Current Medications Current Medications Generic Name Dose Route Start Last Admin Trade Name Freq PRN Reason Stop Dose Admin Acetaminophen 650 mg 07/08/20 17:16 07/08/20 19:47 Acetaminophen 325 Mg Tablet PO 650 mg Q6H PRN Administration Mild/Mod Pain Or Temp >/= 101 Atorvastatin Calcium 40 mg 07/08/20 21:00 07/08/20 19:47 Atorvastatin 40 Mg Tablet PO 40 mg DAILY@2100 LOUISE Administration Enoxaparin Sodium 40 mg 07/08/20 17:30 07/08/20 18:10 Enoxaparin 40 Mg/0.4 Ml Syringe SUBCUT 40 mg Q24H LOUISE Administration Hydralazine HCl 25 mg 07/08/20 17:10 07/08/20 19:47 Hydralazine 25 Mg Tablet PO 25 mg TID LOUISE Administration Sodium Chloride 1,000 mls @ 50 mls/hr 07/09/20 06:00 07/09/20 06:20 Sodium Chloride 0.9% IV 07/10/20 01:59 50 mls/hr .Q20H ONE Administration Dopamine HCl/Dextrose 400 mg in 250 mls @ 17.758 mls/hr 07/09/20 04:00 07/09/20 04:11 Intropin Drip IV 1.5 mcg/kg/min CONT LOUISE 8.9 mls/hr Infusion Protocol 3 MCG/KG/MIN PFSH Acute PFSH: Medical History Dyslipidemia Hypothyroidism Vitals/I&O/Wt Last Vital Signs Temp 98.1 F 07/09/20 00:00 Pulse 88 07/09/20 06:20 Resp 24 H 07/09/20 06:20 BP 151/63 07/09/20 06:20 Pulse Ox 97 07/09/20 06:20 07/08/20 07/09/20 07/09/20 22:59 06:59 14:59 Intake Total 360 / 360 100.89 / 460.89 Balance 360 / 360 100.89 / 460.89 Weight last 48 hrs Weight 346 lb 12.8 oz Weight 348 lb Weight 344 lb Physical Exam Const: COMMON NORMALS: patient oriented x3 and alert ORIENTATION/CONSCIOUSNESS: Yes oriented to person, Yes oriented to place and Yes oriented to time HENMT: COMMON NORMALS: normocephalic HEAD & SCALP: normocephalic Neck/C-Spine: COMMON NORMALS: supple, no JVD and No carotid bruits GENERAL: Yes trachea midline CERVICAL SPINE: Yes cervical ROM normal Chest: COMMONS NORMALS: normal inspection of the chest and normal palpation of entire chest wall Resp: COMMON NORMALS: normal respiratory effort, No use of accessory muscles, clear to auscultation bilaterally and percussion normal EFFORT & INSPECTION: Yes able to speak in complete sentences and Yes symmetric chest movement AUSCULTATION: clear to auscultation bilaterally PERCUSSION: percussion normal Cardio: COMMON NORMALS: no JVD, regular rate, regular rhythm, S1 normal heart sound present, S2 normal heart sound present, No gallops present (Cardio), No murmurs present (Cardio) and No rub (Cardio) JUGULAR VENOUS DISTENTION: no JVD RATE: regular rate RHYTHM: regular rhythm HEART SOUNDS: S1 normal heart sound present and S2 normal heart sound present PERIPHERAL PULSES: radial pulses present positive right (TR band in place) and positive left 2+ Extremity: OTHER: 1+ pretibial edema bilaterally Neuro: COMMON NORMALS: patient oriented x3, no focal motor deficits and no sensory deficits noted SENSORIUM/ORIENTATION: Yes alert, Yes oriented to person, Yes oriented to place and Yes oriented to time GAIT: Yes Unable to assess gait A&P Assessment and plan (1) Bradycardia: I have discussed with Ms. Che relation to consider permanent pacemaker implantation. Rationale for this was carefully reviewed and she is in agreement. Due to inclement weather and has been traveling conditions, we were unable to obtain a [employer] employment program representative on site until tomorrow mid morning. Details and risks of the procedure were carefully and frankly discussed. Risks reviewed include the possibility of , stroke, heart attack, major bleeding, perforation of heart or major vascular structure, infection, pneumonia, pneumothorax requiring chest tube, organ failure, failure to benefit, dislodgment of the leads requiring repositioning, prolonged hospital stay, pain after the procedure, need for further procedures, inability to complete the procedure, and need for long-term followup. All questions were answered. She is agreeable to proceed. Appropriate consents be provided for review and signature. We will continue close monitoring in the ICU until implantation can be completed. Status: Acute Consult Attestations Medical Necessity Statement: Symptomatic, refractory, bradycardia with heart block Time Spent in Patient Care: Greater than 35 minutes Coding Level of Care Code New Pt Acute Can Line Examiner for Chg Fwd Patient Type New History Detailed Exam Detailed Medical Decision Making Moderate Complexity Diagnoses Bradycardia R00.1 Time Spent (min) 40
--- NOTE | 2020-07-09 10:16 | P.PN_ITS ---
Subjective Subjective: Interval history: Overnight, patient had complete heart block with prolonged pauses. She was symptomatic. Patient underwent coronary angiography today that showed no significant coronary artery disease. 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 Temporary pacemaker put in place. Vitals/I&O/Wt Last Vital Signs Temp 98.1 F 07/09/20 00:00 Pulse 88 07/09/20 06:20 Resp 24 H 07/09/20 06:20 BP 151/63 07/09/20 06:20 Pulse Ox 97 07/09/20 06:20 07/08/20 07/09/20 07/09/20 22:59 06:59 14:59 Intake Total 360 / 360 100.89 / 460.89 Balance 360 / 360 100.89 / 460.89 Weight last 48 hrs Weight 346 lb 12.8 oz Weight 348 lb Weight 344 lb Physical Exam Const: COMMON NORMALS: patient oriented x3 HENMT: COMMON NORMALS: normocephalic HEAD & SCALP: normocephalic Eye: COMMON NORMALS: Equal, round and reactive pupils present PUPIL: Yes Equal, round and reactive pupils present Neck/C-Spine: COMMON NORMALS: full ROM Resp: COMMON NORMALS: normal respiratory effort and clear to auscultation bilaterally AUSCULTATION: clear to auscultation bilaterally Cardio: COMMON NORMALS: regular rhythm, S1 normal heart sound present and S2 normal heart sound present RHYTHM: regular rhythm HEART SOUNDS: S1 normal heart sound present and S2 normal heart sound present GI: COMMON NORMALS: Normal to inspection, nondistended, normoactive bowel sounds present and Soft to palpation PALPATION: Yes Soft to palpation Extremity: NARRATIVE EXTREMITY EXAM: Has significant bilateral lymphedema Neuro: COMMON NORMALS: patient oriented x3 Data : 07/09/20 05:10 07/09/20 05:10 A&P Assessment and plan (1) Syncope: Status: Acute (2) Hypothyroidism: Status: Acute (3) Dyslipidemia: Status: Acute (4) Bradycardia: Status: Acute Patient has been having intermittent syncopal episodes. Was found to have significant bradycardia on presentation. Overnight developed complete heart block and had significant long pauses. No significant CAD on coronary angiogram. Temporary pacemaker is in place. Given her multiple syncopal episodes associated with high degree AV block and long pauses, she needs a permanent pacemaker. Dr Lam consulted and has patient on schedule for permanent pacemaker placement tomorrow. Avoid rate controlling agents. NPO past midnight Thank you for involving us with care of this patient. We will continue to follow. Please call with questions Attestations Medical Necessity Statement*: Care expected to cross 2 midnights. Coding Level of Care Code Acute X Ray Equipment Mechanic for Jaime Andriad Diagnoses Syncope R55 Hypothyroidism E03.9 Dyslipidemia E78.5 Bradycardia R00.1
--- NOTE | 2020-07-09 11:37 | P.PN_ITS ---
Subjective Subjective: Interval history: Patient was seen and examined this ,morning. In the last 24 h she had developed severe symptomatic episodes of bradycardia and sinus pauses on the telemetry and hence she was transferred to the ICU for continued monitoring. She underwent CAG during the morning and has clean coronaries. During the procedure she went into heart block resulting in placement of rt right femoral transvenous pacemaker. She has been transferred to ICU. Her other vitals and labs have been reviewed. Medications: Reviewed: Yes Vitals/I&O/Wt Last Vital Signs Temp 98.1 F 07/09/20 00:00 Pulse 77 07/09/20 10:35 Resp 4 L 07/09/20 10:35 BP 138/83 07/09/20 10:35 Pulse Ox 98 07/09/20 10:35 07/08/20 07/09/20 07/09/20 22:59 06:59 14:59 Intake Total 360 / 360 100.89 / 460.89 Balance 360 / 360 100.89 / 460.89 Weight last 48 hrs Weight 157.306 kg Weight 157.85 kg Weight 156.036 kg Physical Exam Const: COMMON NORMALS: patient oriented x3 HENMT: COMMON NORMALS: normocephalic, atraumatic, hearing grossly normal bilaterally and external ears normal HEAD & SCALP: normocephalic and atraumatic EXTERNAL EAR: Yes external ears normal Eye: COMMON NORMALS: no scleral icterus GENERAL EYE: appearance normal, both eyes and all related structures Chest: COMMONS NORMALS: normal inspection of the chest and normal palpation of entire chest wall CHEST: Yes Symmetrical chest wall rise Resp: COMMON NORMALS: normal respiratory effort, No retractions, No use of accessory muscles and clear to auscultation bilaterally EFFORT & INSPECTION: Yes symmetric chest movement AUSCULTATION: clear to auscultation bilaterally Cardio: COMMON NORMALS: regular rate, regular rhythm, S1 normal heart sound present, S2 normal heart sound present, No gallops present (Cardio), No murmurs present (Cardio), No rub (Cardio) and Peripheral pulses 2+ throughout RATE: regular rate RHYTHM: regular rhythm HEART SOUNDS: S1 normal heart sound present and S2 normal heart sound present PERIPHERAL PULSES: Peripheral pulses 2+ throughout GI: COMMON NORMALS: Normal to inspection, nondistended, normoactive bowel sounds present, Soft to palpation, non-tender, No hepatosplenomegaly present and no masses AUSCULTATION: Yes normoactive bowel sounds PALPATION: Yes Soft to palpation and Yes No hepatosplenomegaly present RECTAL EXAM: deferred Extremity: COMMON NORMALS: no clubbing, cyanosis or edema and no pedal edema Neuro: COMMON NORMALS: patient oriented x3 Data : 07/09/20 05:10 07/09/20 05:10 A&P Assessment and plan (1) Bradycardia: Severe Symptomatic Bradycardia likely 2/2 to high grade A.V Block. S/P right femoral transvenous pacemaker CAG : Non obstructive Coronaries. She is Due for permanent Pacemaker placement in am. Status: Acute (2) Syncope: Recurrent Syncope: 2/2 Severe Symptomatic Bradycardia likely 2/2 to high grade A.V Block C.T Head without contrast : No evidence of active or acute intracranial pathologic process, hemorrhage, or trauma 2D Echo: Carotid Doppler : Bilateral ICA stenosis less than 50%. B/L L/E Doppler vein: No DVT Tele Status: Acute (3) Hypothyroidism: Continue Levothyroxine Status: Acute (4) Dyslipidemia: Status: Acute Additional A&P Information DVT PPX: Lovenox 40 mg sc Daily Code Status :Full code Disposition :Home Attestations Medical Necessity Statement*: Patient needs to be in hospital for the management of Recurrent Syncope: 2/2 Severe Symptomatic Bradycardia likely 2/2 to high grade A.V Block and the need for pacemaker placement. Coding Level of Care Code Acute Marketing Research Analyst for [facility] F[facility] Diagnoses Bradycardia R00.1 Syncope R55 Hypothyroidism E03.9 Dyslipidemia E78.5
--- NOTE | 2020-07-09 12:46 | XR_ITS ---
WS: [id number] PORTABLE CHEST HISTORY: pacemaker placement COMPARISON: 07/08/2020 Limited evaluation due to lordotic positioning. There is a temporary pacer wire noted over the LEFT heart. Lungs are clear otherwise. There is very s light venous congestion. No pleural effusion or pneumothorax. Cardiac size: Mildly enlarged cardiac silhouette. Mediastinum/Aorta: Normal mediastinum. No osseous abnormality seen. XR/XR chest 1V portable [id number] IMPRESSION: Status post insertion of a temporary pacer. Mild CHF and cardiomegaly.
[2020-07-09] MEDS: hyDRALAzine 25 mg Tablet PO (15:46)
--- NOTE | 2020-07-09 16:01 | PC.NURSE ---
FOOT PUMPS USED VS. SCDS. CORRECT SIZE FOR SCDS NOT AVAILABLE
--- NOTE | 2020-07-09 18:48 | PC.NURSE ---
dr otero called re: lovenox. will hold toneblizz.
[2020-07-09] MEDS: DOPamine drip 400 MG/250 ML PREMIX 29.6 MG IV (19:36)
--- NOTE | 2020-07-09 19:41 | PC.NURSE ---
to be done in or.
[2020-07-09] MEDS: chlorhexidine gluconate 4% Btl 118 mL 1 APPLIC TOPICAL (19:42)
--- NOTE | 2020-07-09 19:44 | PC.NURSE ---
meds for surgery
[2020-07-09] MEDS: hyDRALAzine 50 mg Tablet 75 MG PO (20:35)
[2020-07-09] MEDS: atorvastatin 40 mg Tablet PO (20:35)
[2020-07-10] VITALS (45 sets, daily range): BP systolic 89–171; BP diastolic 41–110; PULSE 68–92; RESP 0–23; TEMP 36.3–37.1; O2SAT 94–99
--- NOTE | 2020-07-10 | SCC_ITS ---
Procedure Done: Dual-chamber pacemaker and leads implantation 108 seconds of fluoroscopic guidance, for a cumulative dose of 35.33mGy, was provided to Dr. Lam by the radiology department. C-arm images of the chest were saved for the patient's permanent record. [facility]
--- NOTE | 2020-07-10 00:30 | PC.NURSE ---
pt having increased episodes of pauses that are lasting longer. pt states she can feel these episodes more than she did earlier today. dopamine increased to 7.5 mcg. 1 hour later pts episodes have decreases in frequency.
[2020-07-10] MEDS: DOPamine drip 400 MG/250 ML PREMIX 44.4 MG IV ×2 (03:10→10:31)
[2020-07-10] MEDS: ondansetron 2 mg/ML SDV 2 mL 4 MG IVP (05:30)
--- NOTE | 2020-07-10 06:47 | PM.PN ---
Subjective Subjective: Interval history: Ms. Che is resting comfortably this morning with full capture from her temporary pacemaker. Apparently, with some position changes last night she did lose capture briefly though this appears to have been corrected. Vitals/I&O/Wt Last Vital Signs Temp 98.1 F 07/09/20 00:00 Pulse 91 07/10/20 04:00 Resp 13 07/10/20 04:00 BP 133/75 07/10/20 04:00 Pulse Ox 98 07/10/20 04:00 07/09/20 07/09/20 07/10/20 14:59 22:59 06:59 Intake Total 240 / 240 917.208 / 1335.112 7746.00 / 2707.208 Output Total 2350 / 2350 900 / 3250 Balance 240 / 240 -1432.792 / -1192.792 650.00 / -542.792 Weight last 48 hrs Weight 346 lb 12.8 oz Weight 348 lb Weight 344 lb Physical Exam Resp: COMMON NORMALS: normal respiratory effort, No use of accessory muscles and clear to auscultation bilaterally AUSCULTATION: clear to auscultation bilaterally Cardio: COMMON NORMALS: regular rate; negative for regular rhythm RATE: regular rate RHYTHM: abnormal rhythm OTHER: Pacemaker captured beats Extremity: COMMON NORMALS: no clubbing, cyanosis or edema Data : 07/09/20 05:10 07/09/20 05:10 A&P Assessment and plan (1) Bradycardia: We will plan for dual-chamber pacemaker implantation this morning, tentatively around 11 AM. Surgery had to be delayed until today due to inclement weather and inability to obtain a pacemaker construction sales representative on site. Ms. Che is eager to proceed. Status: Acute Attestations Medical Necessity Statement*: Highly symptomatic bradycardia with sinus pauses and high degree AV block Time Spent in Patient Care: less than 15 minutes Coding Level of Care Code Acute Rail Tractor Operator for Kelli Ramirez Diagnoses Bradycardia R00.1
[2020-07-10 07:46] LABS: Magnesium 2.1 mg/dL (1.7-2.3)
[2020-07-10] MEDS: hyDRALAzine 50 mg Tablet 75 MG PO ×2 (08:29→15:24)
[2020-07-10] MEDS: acetaminophen 325 mg Tablet 650 MG PO (08:29)
--- NOTE | 2020-07-10 09:58 | P.PN_ITS ---
Subjective Subjective: Interval history: Patient is doing well. She denies any complaints of chest pain, shortness of breath or palpitations. Her temporary pacemaker was readjusted bedside yesterday and since she has not lost capture. Plan is to have permanent pacemaker placed today. Vitals/I&O/Wt Last Vital Signs Temp 98.6 F 07/10/20 07:30 Pulse 89 07/10/20 09:00 Resp 10 L 07/10/20 09:00 BP 147/91 07/10/20 09:00 Pulse Ox 97 07/10/20 09:00 07/09/20 07/10/20 07/10/20 22:59 06:59 14:59 Intake Total 917.208 / 6342.767 0949.00 / 2707.208 Output Total 2350 / 2350 900 / 3250 150 / 150 Balance -1432.792 / -1192.792 650.00 / -542.792 -150 / -150 Weight last 48 hrs Weight 346 lb 12.8 oz Weight 348 lb Weight 344 lb Physical Exam Const: COMMON NORMALS: patient oriented x3 HENMT: COMMON NORMALS: normocephalic HEAD & SCALP: normocephalic Eye: COMMON NORMALS: Equal, round and reactive pupils present PUPIL: Yes E qual, round and reactive pupils present Neck/C-Spine: COMMON NORMALS: full ROM Resp: COMMON NORMALS: normal respiratory effort and clear to auscultation bilaterally AUSCULTATION: clear to auscultation bilaterally Cardio: COMMON NORMALS: regular rhythm, S1 normal heart sound present and S2 normal heart sound present RHYTHM: regular rhythm HEART SOUNDS: S1 normal heart sound present and S2 normal heart sound present GI: COMMON NORMALS: Normal to inspection, nondistended, normoactive bowel sounds present and Soft to palpation PALPATION: Yes Soft to palpation Extremity: NARRATIVE EXTREMITY EXAM: Has significant bilateral lymphedema Neuro: COMMON NORMALS: patient oriented x3 Data : 07/09/20 05:10 07/09/20 05:10 A&P Assessment and plan (1) Syncope: Status: Acute (2) Hypothyroidism: Status: Acute (3) Dyslipidemia: Status: Acute (4) Bradycardia: Status: Acute Patient has high degree AV block. Significant pauses. S/p coronary angiography performed yesterday that did not reveal any significant coronary artery disease. Temporary pacemaker in place. Plan for permanent pacemaker to be put in today by Dr Lam. Avoid rate controlling agents. N.p.o. till the procedure is performed. Thank you for involving us in the care of this patient. We will continue to follow. Please call with questions. Attestations Medical Necessity Statement*: Care expected to cross 2 midnights. Coding Level of Care Code Acute Phlebotomy Services Representative for [facility] Fwd Diagnoses Syncope R55 Hypothyroidism E03.9 Dyslipidemia E78.5 Bradycardia R00.1
--- NOTE | 2020-07-10 10:21 | PC.CHAP ---
Pastoral Care Encounter/Spiritual Assessment Type of Contact [] Declined field training agent visit [] Patient/Family/Request visit [] Outpatient visit [] Follow-up visit [] Physician referral [] Code/Alert [x] Routine visit [] Staff referral [] Actively dying [] Patient sleeping [] Family support [] [] Out of room [] Palliative care [] [] Receiving care in room [] Pre-surgical visit [] Trauma [] Long length of stay [x] ICU visit [] Other: Relational/Emotional Strength [] Patient feels connected with others/family/visitors/staff [] Distress [] Loneliness/isolation [] Abandonment Spirituality of Patient [x] Person of [place] [] Attends Bahai of their [place] [] Believes in Prayer [] Reads Bible or Presybeterian materials [] There are Spiritual issues to be addressed Adjuster Piano Action Interventions [x] Prayer [x] Active listening [x] Non-anxious presence [x] Spiritual/emotional support [] Crisis/trauma care [] Spiritual counseling [] Bereavement support [] Provided bereavement packet [] Provided Bible/devotional materials [] Provided toy/stuffed animal, coloring book to patient or family member [] Provided Communion [] Anointing/[place] [] Salvation [x] Completed spiritual assessment [] Other: Impact on Illness or Injury [] Angry [] Fearful [] Anxious [] Often cries [] Exhaustion [] Unable to work [] Unable to attend orthodoxy [] Unable to walk/stand [] Unable to read [] Unable to drive [] Unable to eat/drink [] Unable to sleep [] Unable to be with family [] Patient intubated [] Other: Summary patient with spouse ...temp pace maker... surgery this AM on permanent device Time spent with patient 10 min
--- NOTE | 2020-07-10 11:05 | P.ANESASSM_ITS ---
Pre-Anesthetic Assessment Pre-Anesthetic Assessment: Height/Weight: Height 1.52 m Weight 157.306 kg Temp Pulse Resp BP Pulse Ox 98.6 F 89 10 L 147/91 97 07/10/20 07:30 07/10/20 09:00 07/10/20 09:00 07/10/20 09:00 07/10/20 09:00 Preop Diagnosis: arrythmia Proposed Procedure: Operation Date: 07/09/20 07:00 Proposed Procedures p Cardiac Catheterization(Not Applicable) - Michael Lopez M.D Operation Date: 07/10/20 11:00 Proposed Procedures p Pacemaker Insertion(Not Applicable) - Ron Lam MD Familial anesthetic complications: None Was Beta Cam taken within 24 hours: N/A Last intake: NPO > 8hrs Social: Social History: No alcohol and No tobacco Exam: Pre-Anes Outpt Exam: alert, oriented x 3, clear to auscultation bilaterally and regular rate & rhythm Airway: Cervical ROM: WNL MP: 4 Dentition: Chipped and Other (implant) CV/HEM: CV/HEM: Arrythmia (new onset) Metabolic: Metabolic: Hyperlipidemia, Morbid obesity and Thyroid Anesthetic Plan: ASA status: 4 Anesthesia: MAC Risk of > 500 ml blood loss (7ml/kg in children): No Meds/Allergies Current Medications: Current Medications Generic Name Dose Route Start Last Admin Trade Name Freq PRN Reason Stop Dose Admin Acetaminophen 650 mg 07/08/20 17:16 07/10/20 08:29 Acetaminophen 32 5 Mg Tablet PO 650 mg Q6H PRN Administration Mild/Mod Pain Or Temp >/= 101 Atorvastatin Calci um 40 mg 07/08/20 21:00 07/09/20 20:35 Atorvastatin 40 Mg Tablet PO 40 mg DAILY@2100 LOUISE Administration Chlorhexidine Gluc arnoldo 1 applic 07/09/20 18:00 07/09/20 19:42 Chlorhexidine Gl uconate 4% Btl 118 Ml TOPICAL 1 applic BID LOUISE Administration Enoxaparin Sodium 40 mg 07/08/20 17:30 07/09/20 18:48 Enoxaparin 40 Mg /0.4 Ml Syringe SUBCUT Not Given Q24H LOUISE Hydralazine HCl 75 mg 07/09/20 21:00 07/10/20 08:29 Hydralazine 50 M g Tablet PO 75 mg TID LOUISE Administration Dopamine HCl/Dextr ose 400 mg in 250 mls @ 17.758 mls/hr 07/09/20 04:00 07/10/20 10:31 Intropin Drip IV 7.5 mcg/kg/min CONT LOUISE 44.4 mls/hr Administration Protocol 3 MCG/KG/MIN Levothyroxine Sodi um 50 mcg 07/10/20 06:00 07/10/20 05:27 Levothyroxine 50 Mcg Tablet PO Not Given 0600 LOUISE Ondansetron HCl 4 mg 07/08/20 16:53 07/10/20 05:30 Ondansetron 2 Mg /Ml Sdv 2 Ml IVP 4 mg Q6H PRN Administration NAUSEA AND VOMITI NG PFSH Anesthesia PFSH: Medical History Dyslipidemia Hypothyroidism Data Anesthesia CBC & Chem 7: 07/09/20 05:10 07/09/20 05:10 Other Labs: Laboratory Results - last 48 hr 07/08/20 07/08/20 07/08/20 12:01 12:01 12:01 WBC 8.9 RBC 4.74 Hgb 15.0 Hct 46.3 MCV 97.7 MCH 31.6 MCHC 32.4 RDW 13.6 Plt Count 350 MPV 10.5 H Neut % (Auto) 61.1 Lymph % (Auto) 28.8 [place] % (Auto) 6.2 Eos % (Auto) 3.3 Baso % (Auto) 0.3 Neut # (Auto) 5.43 Lymph # (Auto) 2.6 [place] # (Auto) 0.6 Eos # (Auto) 0.3 Baso # (Auto) 0.0 Nucleated RBC % (auto) 0 Nucleated RBCs # 0.0 Sodium 135 L Potassium 4.0 Chloride 98 Carbon Dioxide 25 Anion Gap 16.0 BUN 15 Creatinine 0.9 GFR Calculation 63.2 L Glucose 138 H Estimat Average Glucose Hemoglobin A1c Calculated Osmolality 283 L Calcium 9.8 Magnesium Total Bilirubin 0.7 AST 18 ALT 33 Alkaline Phosphatase 73 Creatine Kinase 41 Troponin T Baseline 13 H Troponin T 120 Minute Delta Troponin T Troponin T Hi Sens 6Hr Troponin T Hi Sens 6Hr Delta Total Protein 6.9 Albumin 3.9 Globulin 3.0 Triglycerides Cholesterol LDL Cholesterol, Calc HDL Cholesterol LDL/HDL Ratio Cholesterol/HDL Ratio TSH 3.94 Free T4 1.66 07/08/20 07/08/20 07/08/20 14:04 17:50 17:50 WBC RBC Hgb Hct MCV MCH MCHC RDW Plt Count MPV Neut % (Auto) Lymph % (Auto) [place] % (Auto) Eos % (Auto) Baso % (Auto) Neut # (Auto) Lymph # (Auto) [place] # (Auto) Eos # (Auto) Baso # (Auto) Nucleated RBC % (auto) Nucleated RBCs # Sodium Potassium Chloride Carbon Dioxide Anion Gap BUN Creatinine GFR Calculation Glucose Estimat Average Glucose Hemoglobin A1c Calculated Osmolality Calcium Magnesium 2.2 Total Bilirubin AST ALT Alkaline Phosphatase Creatine Kinase Troponin T Baseline Troponin T 120 Minute 12.15 H Delta Troponin T -0.85 L Troponin T Hi Sens 6Hr 11.74 H Troponin T Hi Sens 6Hr Delta -1.26 L Total Protein Albumin Globulin Triglycerides Cholesterol LDL Cholesterol, Calc HDL Cholesterol LDL/HDL Ratio Cholesterol/HDL Ratio TSH Free T4 07/09/20 07/09/20 07/09/20 05:10 05:10 05:10 WBC 7.2 RBC 4.55 Hgb 14.3 Hct 43.4 MCV 95.4 MCH 31.4 MCHC 32.9 RDW 14.0 Plt Count 265 MPV 10.8 H Neut % (Auto) 71.8 Lymph % (Auto) 19.4 [place] % (Auto) 5.2 Eos % (Auto) 2.7 Baso % (Auto) 0.6 Neut # (Auto) 5.15 Lymph # (Auto) 1.4 [place] # (Auto) 0.4 Eos # (Auto) 0.2 Baso # (Auto) 0.0 Nucleated RBC % (auto) 0 Nucleated RBCs # 0.0 Sodium 137 Potassium 3.6 Chloride 102 Carbon Dioxide 25 Anion Gap 13.6 BUN 14 Creatinine 0.7 GFR Calculation 84.5 L Glucose 120 H Estimat Average Glucose Hemoglobin A1c Calculated Osmolality 286 Calcium 9.4 Magnesium 2.0 Total Bilirubin AST ALT Alkaline Phosphatase Creatine Kinase Troponin T Baseline Troponin T 120 Minute Delta Troponin T Troponin T Hi Sens 6Hr Troponin T Hi Sens 6Hr Delta Total Protein Albumin Globulin Triglycerides Cholesterol LDL Cholesterol, Calc HDL Cholesterol LDL/HDL Ratio Cholesterol/HDL Ratio TSH Free T4 07/09/20 07/09/20 07/10/20 05:10 05:10 03:04 WBC RBC Hgb Hct MCV MCH MCHC RDW Plt Count MPV Neut % (Auto) Lymph % (Auto) [place] % (Auto) Eos % (Auto) Baso % (Auto) Neut # (Auto) Lymph # (Auto) [place] # (Auto) Eos # (Auto) Baso # (Auto) Nucleated RBC % (auto) Nucleated RBCs # Sodium Potassium Chloride Carbon Dioxide Anion Gap BUN Creatinine GFR Calculation Glucose Estimat Average Glucose 103 Hemoglobin A1c 5.2 Calculated Osmolality Calcium Magnesium Cancelled Total Bilirubin AST ALT Alkaline Phosphatase Creatine Kinase Troponin T Baseline Troponin T 120 Minute Delta Troponin T Troponin T Hi Sens 6Hr Troponin T Hi Sens 6Hr Delta Total Protein Albumin Globulin Triglycerides 110 Cholesterol 155 LDL Cholesterol, Calc 92 HDL Cholesterol 41 L LDL/HDL Ratio 2.24 Cholesterol/HDL Ratio 3.78 TSH Free T4 07/10/20 07:16 WBC RBC Hgb Hct MCV MCH MCHC RDW Plt Count MPV Neut % (Auto) Lymph % (Auto) [place] % (Auto) Eos % (Auto) Baso % (Auto) Neut # (Auto) Lymph # (Auto) [place] # (Auto) Eos # (Auto) Baso # (Auto) Nucleated RBC % (auto) Nucleated RBCs # Sodium Potassium Chloride Carbon Dioxide Anion Gap BUN Creatinine GFR Calculation Glucose Estimat Average Glucose Hemoglobin A1c Calculated Osmolality Calcium Magnesium 2.1 Total Bilirubin AST ALT Alkaline Phosphatase Creatine Kinase Troponin T Baseline Troponin T 120 Minute Delta Troponin T Troponin T Hi Sens 6Hr Troponin T Hi Sens 6Hr Delta Total Protein Albumin Globulin Triglycerides Cholesterol LDL Cholesterol, Calc HDL Cholesterol LDL/HDL Ratio Cholesterol/HDL Ratio TSH Free T4 Cardiac Studies: No Data to Display
--- NOTE | 2020-07-10 11:52 | SC_ITS ---
WS: [id number] C-ARM RADIOGRAPHS CHEST; 2 IMAGES HISTORY: pacemaker COMPARISON: None available. Intraoperative imaging during pacer placement. SC/C-arm FL for Pacemaker IMPRESSION: Intraoperative imaging during pacer placement.
[2020-07-10] MEDS: ceFAZolin 1,000 mg SDV 1000 MG IRRIGATION (12:17)
[2020-07-10] MEDS: lidocaine 1% INJ 20 mL INJECTION (12:19)
--- NOTE | 2020-07-10 13:00 | USCV_ITS ---
ChineduMelony Age: 64 Gender: F : 1955 Exam Date: 07/10/2020 06:20 Ordering Phys: Jona Cristobal MD Technologist: Nicholas Perry [place] [facility] [place] RECURRENT SYNCOPE BP: 147 / 87 HR: 43 Rhythm: Sinus Technical Quality: Good MEASUREMENTS (Male / Female) Normal Values 2D ECHO LV Diastolic Diameter PLAX 4.4 cm 4.2 - 5.9 / 3.9 - 5.3 cm LV Systolic Diameter PLAX 3.3 cm IVS Diastolic Thickness 0.9 cm 0.6 - 1.0 / 0.6 - 0.9 cm IVS Systolic Thickness 1.7 cm LVPW Diastolic Thickness 1.0 cm 0.6 - 1.0 / 0.6 - 0.9 cm LVPW Systolic Thickness 1.3 cm LVOT Diameter 2.0 cm LV Ejection Fraction 2D Teich 38.3 % LA Diameter 4.0 cm LA Width 3.4 cm LA Height 5.3 cm RA Width 3.2 cm RA Height 5.4 cm Aorta at Sinotubular Diameter 2.8 cm M-MODE LV Diastolic Diameter MM 5.9 cm 4.2 - 5.9 / 3.9 - 5.3 cm LV Systolic Diameter MM 3.3 cm LV Ejection Fraction MM Teich 74.6 % IVS Diastolic Thickness MM 1.2 cm 0.6 - 1.0 / 0.6 - 0.9 cm IVS Systolic Thickness MM 1.6 cm LVPW Diastolic Thickness MM 1.2 cm 0.6 - 1.0 / 0.6 - 0.9 cm LVPW Systolic Thickness MM 1.6 cm RV Diastolic Diameter MM 1.0 cm Aortic Annulus Diameter 3.1 cm LA Ao Ratio MM 1.3 MV E Point Septal Separation 1.0 cm DOPPLER AV Peak Velocity 181.0 cm/s LVOT Peak Velocity 89.0 cm/s AV Area Cont Eq vti 2.2 cm squared AV Area Cont Eq pk 1.6 cm squared MV Area PHT 5.0 cm squared Mitral E to A Ratio 4.0 MV E' Velocity 85.0 cm/s Mitral E to MV E' Ratio 17.5 Mitral E to LV E' Lateral Ratio 14.5 Mitral E to LV E' Septal Ratio 22.1 TR Peak Velocity 282.0 cm/s TR Peak Gradient 31.8 mmHg TV Peak E Velocity 89.0 cm/s Right Atrial Pressure 3.0 mmHg Pulmonary Artery Systolic Pressu 34.8 mmHg PV Peak Velocity 126.0 cm/s FINDINGS Left Ventricle Normal left ventricular size and systolic function, EF 60% . Abnormal septal motion consistent with conduction abnormality. Mild left ventricular hypertrophy. Grade I/IV diastolic dysfunction (abnormal relaxation filling pattern), normal to mildly elevated filling pressures. Right Ventricle The right ventricle is normal in size and function. Right Atrium The right atrium is normal in size. Left Atrium Mildly increased left atrial size. Mitral Valve Moderate mitral valve regurgitation. Aortic Valve Thickened aortic valve. Tricuspid Valve Mild tricuspid valve regurgitation. Pulmonic Valve No gross abnormalities noted Pericardium Normal pericardium without effusion. Aorta Normal ascending aorta dimension. CONCLUSIONS Normal left ventricular size and systolic function, EF 60% . Abnormal septal motion consistent with conduction abnormality. Mild left ventricular hypertrophy. Grade I/IV diastolic dysfunction (abnormal relaxation filling pattern), normal to mildly elevated filling pressures. Moderate mitral valve regurgitation. Mildly increased left atrial size. Thickened aortic valve. Mild tricuspid valve regurgitation. Estimated pulmonary artery peak systolic pressure was 35 mmHg There is no pericardial effusion. There are no intracardiac masses. No previous study is available for comparison. Dr Selene Leos MD FACC (Electronically Signed) Final Date: 10 July 2020 17:49 S
--- NOTE | 2020-07-10 13:24 | PM.OP ---
Operative Report Date of procedure: July 10, 2020 Pre-op Diagnosis: High degree heart block with prolonged sinus pauses and syncope Post-op diagnosis: same Procedure Done: Dual-chamber pacemaker and leads implantation Implants: Dual chamber pacemaker generator, atrial and ventricular leads Pathology: none sent Surgeon: Ron Lam Anesthesia: MAC and Local Estimated blood loss (mL): 20 Complications: None Findings: Fluoroscopy utilized for guidewire, sheath, and leads implantation and positioning Condition: stable Disposition: ICU Brief History: 64-year-old female presented with intermittent episodes of syncope. She was found to have intermittent episodes of what appeared to be third-degree AV heart block. Risk analysis led to a left heart catheterization by Dr. Lopez which revealed no obstructive coronary disease. Post procedure she developed acute heart block with prolonged periods of asystole. A right femoral venous temporary pacemaker was placed. I was consulted for dual-chamber pacemaker implantation. Rationale, conduct, as well as details and risk of the procedure were carefully and frankly discussed. Proper consents have been reviewed and signed. Procedure: Procedure: Ms. Che was taken to the OR suite and placed in the supine position over a shoulder roll. She received conscious sedation with continuous anesthesia monitoring by. Her entire chest was sterilely prepped and draped. 1% lidocaine was infiltrated in the left subclavicular region. While in Trendelenburg position, utilizing modified seldinger technique, 2 guidewires were placed in the left subclavian vein. This was confirmed in position by fluoroscopy. Next, after infiltration with lidocaine, a subcutaneous pocket was created beginning from the exit point of the guidewire and extending laterally and inferiorly. Cautery was utilized to create the pocket just above the pectoralis musculature. Hemostasis was confirmed. An antibiotic-soaked sponge was placed in the wound. A dilator and tear-away sheath was placed over the first guidewire and advanced under fluoroscopy. Guidewire and dilator were removed. Next using a combination of curved and straight stylettes, the right ventricular lead was placed in position by fluoroscopy. The distal screw was extended. Interrogation was then performed confirming appropriate parameters. The tear-away sheath was then removed and the ventricular lead was sewn to the floor of the subcutaneous pocket. In a similar fashion dilator and tear-away sheath was placed over the 2nd guide wire and advanced under fluoroscopy. Guidewire and dilator were removed. Straight and curved stylettes were used to position the right atrial lead with fluoroscopy. Distal screw was extended. Interrogation was then performed. Tear-away sheath was then removed. Atrial lead was secured to the floor of the subcutaneous pocket. Pocket was irrigated with antibiotic solution and hemostasis again confirmed. Pacing generator was brought into the field, and after confirmation of hemostasis in the subcutaneous pocket, the leads were connected to the generator with appropriate capture. The entire system was interrogated by fluoroscopy. Leads and generator were secured in the pocket. Sponge and needle count was correct. The wound was then closed in 2 layers of 3-0 Vicryl suture. Skin was reapproximated in a subcuticular manner with 4-0 Monocryl suture. A pressure dressing was applied. The left arm was placed in a sling. The patient had equal breath sounds bilaterally. She was then transferred back to the ICU, where chest x-ray is currently pending. We did day camp counselor with the family at the completion of the procedure. Following are the specifics of this system: Right ventricular lead is 52 cm and model 5076. Serial number [id number] Right atrial lead is 45 cm and is model 5076. Serial number [id number]. Ventricular lead sensing threshold cannot be measured as it was capturing up with the temporary pacemaker spikes with an impedance of 721 ohms. Threshold was 0.75 V Atrial lead had sensing of 1.8 mV with an impedance of 537 ohms. Threshold was 1 V. [employer] generator: Model # [id number] Serial # [id number]
--- NOTE | 2020-07-10 14:28 | PC.NURSE ---
REceived patient back from surgery at 1335. Vitals: BP: 86/45, HR: 78, RR 14, 96% spo2, Temp: 96.7. . Patient is alert and oriented. Has no complaints. Pacer settings: 60 low, 110 high.
--- NOTE | 2020-07-10 16:49 | XRR_ITS ---
PROCEDURE INFORMATION: Exam: XR Chest, 1 View Exam date and time: 07/10/2020 5:15 PM Age: 64 years old Clinical indication: Device placement; Cardiac pacemaker placement or adjustment; Prior surgery; Surgery date: Post-operative (0-2 days); Additional info: Post perm pacemaker TECHNIQUE: Imaging protocol: XR of the chest Views: 1 view. COMPARISON: CR XR chest 1V portable [id number] 07/09/2020 12:49 PM FINDINGS: Lungs: No consolidation. Pleural spaces: Unremarkable. No pleural effusion. No pneumothorax. Heart/Mediastinum: There is a pacemaker present over the left chest with leads in the right atrium and right ventricle. Cardiomegaly. Bones/joints: No acute fracture. XR/XR chest 1V portable [id number] IMPRESSION: There is a pacemaker present over the left chest with leads in the right atrium and right ventricle. No pneumothorax.
--- NOTE | 2020-07-10 17:19 | ANE.PACU2 ---
Inpatient post-anesthesia follow up: Airway intact: Yes Vital signs: Temperature 98.6 F Pulse Rate [Monito r] 43 Pulse Rate 68 Respiratory Rate 10 Blood Pressure [Le ft Arm] 164/68 Blood Pressure 147/91 Pulse Oximetry 98 Oxygen Delivery Me thod [ Nasal Cannula Current Rate & Del dominick] Oxygen Delivery Me thod Room Air Oxygen Flow Rate [ Current Rate 2 & Delivery] Fraction of Inspir ed Oxygen Hydration adequate: Yes Nausea and vomiting: No Pain level: 1 Mental status: Baseline
--- NOTE | 2020-07-10 17:54 | PC.NURSE ---
at 1630, Nurse removed right femoral venous sheath. Held pressure for 15 minutes. dressed site with tegaterm and a 4x4. No signs of bleeding, no hematoma, or swelling.
[2020-07-10] MEDS: ceFAZolin 1,000 MG in sodium chloride 0.9% (plus) 50 ML 100 MG IV (18:16)
--- NOTE | 2020-07-10 18:31 | PC.NURSE ---
SHift summary: uneventful shift. Patient went to surgery for pacemaker placement at 11am, returned to room at 1335. Pacemaker has been capturing with no dysrhythmias or skipped beats noted. Settings are 60 low, 110 high. Pt has been resting comfortably since.
[2020-07-10] MEDS: HYDROcodone-acetaminophen 5-325 mg Tablet 1 TAB PO (20:07)
[2020-07-10] MEDS: atorvastatin 40 mg Tablet PO (20:07)
--- NOTE | 2020-07-10 20:50 | P.PN_ITS ---
Subjective Subjective: Interval history: Patient was seen and examined this morning.Dopamine drip was restarted last night. She denies any complaints of chest pain, shortness of breath, nausea, vom iting.Her temporary pacemaker was readjusted bedside yesterday as there was asynchronous capture and since she has not lost capture.Plan is to have permanent pacemaker placed today. Other vitals and labs have been reviewed. Medications: Reviewed: Yes Vitals/I&O/Wt Last Vital Signs Temp 98.7 F 07/10/20 20:00 Pulse 71 07/10/20 20:30 Resp 10 L 07/10/20 20:30 BP 102/53 07/10/20 20:30 Pulse Ox 99 07/10/20 20:30 07/10/20 07/10/20 07/10/20 06:59 14:59 22:59 Intake Total 1550.00 / 2707.208 300 / 300 50 / 350 Output Total 900 / 3250 150 / 150 950 / 1100 Balance 650.00 / -542.792 150 / 150 -900 / -750 Weight last 48 hrs Weight 157.306 kg Physical Exam Const: COMMON NORMALS: patient oriented x3 HENMT: COMMON NORMALS: normocephalic, atraumatic, hearing grossly normal bilaterally and external ears normal HEAD & SCALP: normocephalic and atraumatic EXTERNAL EAR: Yes external ears normal Eye: COMMON NORMALS: no scleral icterus GENERAL EYE: appearance normal, both eyes and all related structures Chest: COMMONS NORMALS: normal inspection of the chest and normal palpation of entire chest wall CHEST: Yes Symmetrical chest wall rise Resp: COMMON NORMALS: normal respiratory effort, No retractions, No use of accessory muscles and clear to auscultation bilaterally EFFORT & INSPECTION: Yes symmetric chest movement AUSCULTATION: clear to auscultation bilaterally Cardio: COMMON NORMALS: regular rate, regular rhythm, S1 normal heart sound present, S2 normal heart sound present, No gallops present (Cardio), No murmurs present (Cardio), No rub (Cardio) and Peripheral pulses 2+ throughout RATE: regular rate RHYTHM: regular rhythm HEART SOUNDS: S1 normal heart sound present and S2 normal heart sound present PERIPHERAL PULSES: Peripheral pulses 2+ throughout GI: COMMON NORMALS: Normal to inspection, nondistended, normoactive bowel sounds present, Soft to palpation, non-tender, No hepatosplenomegaly present and no masses AUSCULTATION: Yes normoactive bowel sounds PALPATION: Yes Soft to palpation and Yes No hepatosplenomegaly present RECTAL EXAM: deferred Extremity: COMMON NORMALS: no clubbing, cyanosis or edema and no pedal edema Neuro: COMMON NORMALS: patient oriented x3 Data : 07/09/20 05:10 07/09/20 05:10 A&P Assessment and plan (1) Bradycardia: Severe Symptomatic Bradycardia likely 2/2 to high grade A.V Block as well as significant pause. S/P right femoral transvenous pacemaker CAG : Non obstructive Coronaries. She is Due for permanent Pacemaker placement in today by Dr. Lam. Appreciate cardiology and cardiothoracic involvement in the management of the patient. Status: Acute (2) Syncope: Recurrent Syncope: 2/2 Severe Symptomatic Bradycardia likely 2/2 to high grade A.V Block C.T Head without contrast : No evidence of active or acute intracranial pathologic process, hemorrhage, or trauma 2D Echo: Carotid Doppler : Bilateral ICA stenosis less than 50%. B/L L/E Doppler vein: No DVT Tele Status: Acute (3) Hypothyroidism: Continue Levothyroxine Status: Acute (4) Dyslipidemia: Status: Acute Additional A&P Information DVT PPX: Lovenox 40 mg sc Daily Code Status :Full code Disposition :Home Attestations Medical Necessity Statement*: Patient needs to be in hospital for management of severe symptomatic bradycardia and recurrent syncope. Coding Level of Care Code Acute Cnc Wood Lathe Operator for Kelli Fwd Diagnoses Bradycardia R00.1 Syncope R55 Hypothyroidism E03.9 Dyslipidemia E78.5
[2020-07-11] VITALS (35 sets, daily range): BP systolic 84–124; BP diastolic 44–69; PULSE 64–97; RESP 12–24; TEMP 36.6; O2SAT 85–98
[2020-07-11] MEDS: ceFAZolin 1,000 MG in sodium chloride 0.9% (plus) 50 ML 100 MG IV ×2 (02:01→10:36)
[2020-07-11] MEDS: levothyroxine 50 mcg Tablet PO (05:21)
[2020-07-11 05:23] LABS: Basophils % 0.3 %; Eosinophils # 0.5 10^3/uL (0.0-0.8); Eosinophils % 6.5 %; Hematocrit 43.1 % (37.0-47.0); Hemoglobin 13.5 g/dL (11.5-15.3); Lymphocytes # 1.3 10^3/uL (0.8-4.8); Lymphocytes % 17.8 %; Mean Corpuscular HGB Conc 31.3 g/dL (30.0-36.0); Mean Corpuscular Hemoglobin 31.3 pg (28.0-34.0); Mean Corpuscular Volume 99.8 fL (81-99); Mean Platelet Volume 10.2 fL (7.4-10.4); Monocytes # 0.5 10^3/uL (0.2-0.9); Monocytes % 6.9 %; Neutrophils # 4.91 10^3/uL (1.8-7.7); Neutrophils % 68.2 %; Nucleated Red Blood Cells % 0 %; Platelet Count 229 10^3/cmm (130-400); Red Blood Count 4.32 10^6/uL (4.1-5.3); Red Cell Distribution Width 13.9 % (12.1-15.1); White Blood Count 7.2 10^3/uL (4.0-10.0)
[2020-07-11 05:41] LABS: Magnesium 2.2 mg/dL (1.7-2.3)
[2020-07-11 05:44] LABS: Anion Gap 12.2 (5-19); Blood Urea Nitrogen 11 mg/dL (8-23); Calcium 8.5 mg/dL (8.5-10.5); Carbon Dioxide 29 mmol/L (22-29); Chloride 103 mmol/L (98-107); Glomerular Filtration Rate 84.5 mL/min (90-130); Glucose 84 mg/dL (65-115); Osmolality Calculated 289 mOsm/kg (285-295); Potassium 4.2 mmol/L (3.5-5.1); Sodium 140 mmol/L (136-145)
--- NOTE | 2020-07-11 06:17 | P.PN_ITS ---
Subjective Subjective: Interval history: POD #1 status post dual-chamber pacemaker implantation. Rested well last night. No complaints. Heart rate mid 70s to low 80s. Vitals/I&O/Wt Last Vital Signs Temp 98.7 F 07/10/20 20:00 Pulse 76 07/11/20 06:00 Resp 13 07/11/20 05:00 BP 84/51 07/11/20 05:00 Pulse Ox 96 07/11/20 05:00 07/10/20 07/10/20 07/11/20 14:59 22:59 06:59 Intake Total 300 / 300 250 / 550 150 / 700 Output Total 150 / 150 1250 / 1400 325 / 1725 Balance 150 / 150 -1000 / -850 -175 / -1025 Physical Exam Chest: COMMONS NORMALS: normal inspection of the chest (Surgical incision site is clean and dry. Surgical dressing was replaced. ) and normal palpation of entire chest wall Data : 07/11/20 04:27 07/11/20 04:27 A&P Assessment and plan (1) Pacemaker: POD #1 status post dual-chamber pacemaker implantation. Recommendation: [employer] cordage sales representative will reinterrogate pacemaker this morning. DC Nunes catheter After discharge, follow-up in pacemaker clinic with heart care services in 1 week. Status: Acute Attestations Medical Necessity Statement*: Status post pacemaker implantation secondary to high degree heart block Time Spent in Patient Care: 16 - 35 minutes Coding Level of Care Code Acute Management Developer for Kelli Ramirez Diagnoses Pacemaker Z95.0
--- NOTE | 2020-07-11 07:21 | PC.NURSE ---
pacemaker interegation done this morning by company rep no issues
--- NOTE | 2020-07-11 07:47 | PC.NURSE ---
up in bed am raisa served at this time stating not ready to go home today
--- NOTE | 2020-07-11 09:00 | PM.PN ---
Subjective Subjective: Interval history: Patient underwent permanent pacemaker placement yesterday. She is feeling well. Appropriate pacing on the tele. Device rep will interrogate device today. Denies any further syncopal episodes. Vitals/I&O/Wt Last Vital Signs Temp 98.7 F 07/10/20 20:00 Pulse 89 07/11/20 08:38 Resp 12 07/11/20 08:00 BP 97/51 07/11/20 08:00 Pulse Ox 96 07/11/20 08:38 07/10/20 07/11/20 07/11/20 22:59 06:59 14:59 Intake Total 250 / 550 150 / 700 200 / 200 Output Total 1250 / 1400 325 / 1725 Balance -1000 / -850 -175 / -1025 200 / 200 Physical Exam Const: COMMON NORMALS: patient oriented x3 HENMT: COMMON NORMALS: normocephalic HEAD & SCALP: normocephalic Eye: COMMON NORMALS: Equal, round and reactive pupils present PUPIL: Yes Equal, round and reactive pupils present Neck/C-Spine: COMMON NORMALS: full ROM Resp: COMMON NORMALS: normal respiratory effort and clear to auscultation bilaterally AUSCULTATION: clear to auscultation bilaterally Cardio: COMMON NORMALS: regular rhythm, S1 normal heart sound present and S2 normal heart sound present RHYTHM: regular rhythm HEART SOUNDS: S1 normal heart sound present and S2 normal heart sound present GI: COMMON NORMALS: Normal to inspection, nondistended, normoactive bowel sounds present and Soft to palpation PALPATION: Yes Soft to palpation Extremity: NARRATIVE EXTREMITY EXAM: Has significant bilateral lymphedema Neuro: COMMON NORMALS: patient oriented x3 Data : 07/12/20 04:40 07/12/20 04:40 A&P Assessment and plan (1) Pacemaker: Status: Acute (2) Bradycardia: Status: Acute (3) Hypothyroidism: Status: Acute (4) Dyslipidemia: Status: Acute (5) Syncope: Status: Acute Patient had high degree AV block. Significant pauses and syncopal episodes . S/p coronary angiography not revealing significant coronary artery disease. Patient underwent permanent pacemaker placement yesterday. Doing well and PM has appropriate capture on tele. Awaiting device check this AM She is hypotensive. We will hold antihypertensive meds for now Will recommend observing for 1 more day. Will be ready to be discharged tomorrow from cardiology standpoint. Thank you for involving us in the care of this patient. We will continue to follow. Please call with questions. Attestations Medical Necessity Statement*: Care expected to cross 2 midnights Coding Level of Care Code Acute Dry Cleaner for [facility] Fwd Diagnoses Pacemaker Z95.0 Bradycardia R00.1 Hypothyroidism E03.9 Dyslipidemia E78.5 Syncope R55
[2020-07-11] MEDS: HYDROcodone-acetaminophen 5-325 mg Tablet 1 TAB PO (10:37)
--- NOTE | 2020-07-11 13:39 | P.PN_ITS ---
Subjective Subjective: Interval history: Patient was seen and examined this morning.No acute events overnight. POD #1 status post dual-chamber pacemaker implantation. Heart rate mid 70s to low 80s. B/P has been on softer side,hence hydralazine was discontinued.Pacemaker insertion site is clean. No active complain. Her other Vitals and labs have been have reviewed. Medications: Reviewed: Yes Vitals/I&O/Wt Last Vital Signs Temp 98 F 07/11/20 12:00 Pulse 82 07/11/20 12:00 Resp 24 H 07/11/20 12:00 BP 124/67 07/11/20 12:00 Pulse Ox 94 07/11/20 12:00 07/10/20 07/11/20 07/11/20 22:59 06:59 14:59 Intake Total 250 / 550 150 / 700 450 / 450 Output Total 1250 / 1400 325 / 1725 Balance -1000 / -850 -175 / -1025 450 / 450 Physical Exam Const: COMMON NORMALS: patient oriented x3 HENMT: COMMON NORMALS: normocephalic, atraumatic and external ears normal HEAD & SCALP: normocephalic and atraumatic EXTERNAL EAR: Yes external ears normal Eye: COMMON NORMALS: no scleral icterus GENERAL EYE: appearance normal, both eyes and all related structures Chest: OTHER: normal inspection of the chest,normal palpation of entire chest wall. Surgical incision site is clean and dry Resp: COMMON NORMALS: normal respiratory effort, No retractions, No use of acc essory muscles and clear to auscultation bilaterally EFFORT & INSPECTION: Yes symmetric chest movement AUSCULTATION: clear to auscultation bilaterally Cardio: COMMON NORMALS: regular rate, regular rhythm, S1 normal heart sound present, S2 normal heart sound present, No gallops present (Cardio), No murmurs present (Cardio), No rub (Cardio) and Peripheral pulses 2+ throughout RATE: regular rate RHYTHM: regular rhythm HEART SOUNDS: S1 normal heart sound present and S2 normal heart sound present PERIPHERAL PULSES: Peripheral pulses 2+ throughout GI: COMMON NORMALS: Normal to inspection, nondistended, normoactive bowel sounds present, Soft to palpation, non-tender, No hepatosplenomegaly present and no masses AUSCULTATION: Yes normoactive bowel sounds PALPATION: Yes Soft to palpation and Yes No hepatosplenomegaly present RECTAL EXAM: deferred Extremity: COMMON NORMALS: no clubbing, cyanosis or edema and no pedal edema Neuro: COMMON NORMALS: patient oriented x3 Data : 07/11/20 04:27 07/11/20 04:27 A&P Assessment and plan (1) Bradycardia: Severe Symptomatic Bradycardia likely 2/2 to high grade A.V Block as well as significant pause. Initially Rt femoral transvenous pacemaker status post dual-chamber pacemaker implantation CAG : Non obstructive Coronaries. Appreciate cardiology and cardiothoracic involvement in the management of the patient. Status: Acute (2) Syncope: Recurrent Syncope: 2/2 Severe Symptomatic Bradycardia likely 2/2 to high grade A.V Block C.T Head without contrast : No evidence of active or acute intracranial pathologic process, hemorrhage, or trauma 2D Echo: Carotid Doppler : Bilateral ICA stenosis less than 50%. B/L L/E Doppler vein: No DVT Tele Status: Acute (3) Hypothyroidism: Continue Levothyroxine Status: Acute (4) Dyslipidemia: Status: Acute Additional A&P Information DVT PPX: Lovenox 40 mg sc Daily Code Status :Full code Disposition :Home in the morning Attestations Medical Necessity Statement*: She needs to be in hospital for management of severe symptomatic bradycardia status post pacemaker implant. Coding Level of Care Code Acute Precipitation Equipment Tender for Kelli Ramirez Diagnoses Bradycardia R00.1 Syncope R55 Hypothyroidism E03.9 Dyslipidemia E78.5
[2020-07-11] MEDS: alum-mag-hydroxide-sime 30 mL UDC 15 ML PO (15:14)
[2020-07-11] MEDS: atorvastatin 40 mg Tablet PO (20:45)
[2020-07-11] MEDS: acetaminophen 325 mg Tablet 650 MG PO (20:53)
[2020-07-12] VITALS (15 sets, daily range): BP systolic 93–126; BP diastolic 47–77; PULSE 73–99; RESP 13–21; TEMP 36.6; O2SAT 89–97
[2020-07-12] MEDS: levothyroxine 50 mcg Tablet PO (05:09)
[2020-07-12 05:41] LABS: Basophils % 0.3 %; Eosinophils # 0.4 10^3/uL (0.0-0.8); Eosinophils % 6.9 %; Hematocrit 41.5 % (37.0-47.0); Hemoglobin 13.1 g/dL (11.5-15.3); Lymphocytes # 1.4 10^3/uL (0.8-4.8); Lymphocytes % 23.1 %; Mean Corpuscular HGB Conc 31.6 g/dL (30.0-36.0); Mean Corpuscular Hemoglobin 31.5 pg (28.0-34.0); Mean Corpuscular Volume 99.8 fL (81-99); Mean Platelet Volume 10.2 fL (7.4-10.4); Monocytes # 0.5 10^3/uL (0.2-0.9); Monocytes % 7.9 %; Neutrophils # 3.83 10^3/uL (1.8-7.7); Neutrophils % 61.8 %; Nucleated Red Blood Cells % 0 %; Platelet Count 215 10^3/cmm (130-400); Red Blood Count 4.16 10^6/uL (4.1-5.3); Red Cell Distribution Width 13.7 % (12.1-15.1); White Blood Count 6.2 10^3/uL (4.0-10.0)
--- NOTE | 2020-07-12 06:03 | PC.NURSE ---
uneventful night, required one dose of PRN Tylenol throughout shift, no s/s or C/O distress through shift
[2020-07-12 06:12] LABS: Anion Gap 9.4 (5-19); Blood Urea Nitrogen 10 mg/dL (8-23); Calcium 8.6 mg/dL (8.5-10.5); Carbon Dioxide 31 mmol/L (22-29); Chloride 103 mmol/L (98-107); Glucose 85 mg/dL (65-115); Osmolality Calculated 286 mOsm/kg (285-295); Potassium 4.4 mmol/L (3.5-5.1); Sodium 139 mmol/L (136-145)
--- NOTE | 2020-07-12 08:35 | PC.NURSE ---
shoulder immobilizer removed and replace with left arm sling at this time up in bed am renak served
--- NOTE | 2020-07-12 13:12 | P.PN_ITS ---
Subjective Subjective: Interval history: Patient denies any cardiac complaints this morning. No events on telemetry. Patient underwent pacemaker interrogation post implantation (Medtronic dual-milagro mber pacemaker DDD 60/110; a paced 8.7% and V paced 99.8%. Normal impedance of atrial and ventricular lead. Medications: Reviewed: Yes Medication Review Details: Current Medications Acetaminophen (Acetaminophen 325 Mg Tablet) 650 mg PO Q6H PRN PRN Reason: Mild/Mod Pain Or Temp >/= 101 Last Admin: 07/11/20 20:53 Dose: 650 mg Documented by: Hydrocodone Bitart/Acetaminophen (Hydrocodone-Acetaminophen 5-325 Mg Tablet) 1 tab PO Q4H PRN PRN Reason: MODERATE PAIN Last Admin: 07/11/20 10:37 Dose: 1 tab Documented by: Al Hydrox/Mg Hydrox/Simethicone (Ggkg-Yhr-Jehhjqphp-Tahir 30 Ml Udc) 15 ml PO Q4H PRN PRN Reason: INDIGESTION Last Admin: 07/11/20 15:14 Dose: 15 ml Documented by: Atorvastatin Calcium (Atorvastatin 40 Mg Tablet) 40 mg PO DAILY@2100 [facility] Last Admin: 07/11/20 20:45 Dose: 40 mg Documented by: Chlorhexidine Gluconate (Chlorhexidine Gluconate 4% Btl 118 Ml) 1 applic TOPICAL BID [facility] Last Admin: 07/12/20 09:08 Dose: Not Given Documented by: Ketorolac Tromethamine (Ketorolac 30 Mg/Ml Inj) 30 mg IVP Q6H PRN PRN Reason: MODERATE PAIN Stop: 07/15/20 13:51 Levothyroxine Sodium (Levothyroxine 50 Mcg Tablet) 50 mcg PO 0600 [facility] Last Admin: 07/12/20 05:09 Dose: 50 mcg Documented by: Morphine Sulfate (Morphine 4 Mg/Ml Sdv 1 Ml) 2 mg IVP Q1H PRN PRN Reason: SEVERE PAIN Ondansetron HCl (Ondansetron 2 Mg/Ml Sdv 2 Ml) 4 mg IVP Q6H PRN PRN Reason: NAUSEA AND VOMITING Last Admin: 07/10/20 05:30 Dose: 4 mg Documented by: Ondansetron HCl (Ondansetron 2 Mg/Ml Sdv 2 Ml) 4 mg IVP Q8H PRN PRN Reason: vomiting, or N/V if npo Vitals/I&O/Wt Last Vital Signs Temp 98 F 07/11/20 12:00 Pulse 86 07/12/20 13:00 Resp 14 07/12/20 13:00 BP 110/59 07/12/20 10:00 Pulse Ox 96 07/12/20 10:00 07/11/20 07/12/20 07/12/20 22:59 06:59 14:59 Intake Total 300 / 750 300 / 300 Output Total 600 / 600 1449 / 0 2049 Balance -300 / 150 -1450 / -1300 -1750 / -1750 Weight last 48 hrs Weight 352 lb Physical Exam Narrative: EXAM NARRATIVE: GENERAL: Obese woman lying in bed in no acute distress HEENT: Pupils equal round reactive to light. No pallor or icterus. NECK: central trachea, no jugular venous distention appreciated shaded. No carotid bruit CARDIOVASCULAR SYSTEM: S1-S2 regular. No S3 or S4 present. 2/6 systolic murmur in mitral area RESPIRATORY SYSTEM: Chest clear to auscultation. No wheezes rhonchi or rubs heard. No use of accessory muscles. Left upper chest dressing in place at the site of pacemaker; no swelling or hematoma noted ABDOMEN: Soft, nontender and nondistended. Normal bowel sounds present. EXTREMITIES: No cyanosis or clubbing. No pitting edema. ZIPPER REPAIRER: Patient is alert oriented ?3. No focal neurological deficits. SKIN: Normal turgor and temperature. No breakdown, rash or nail changes noted. Data : 07/12/20 04:40 07/12/20 04:40 Attestation for Other Data: I personally reviewed and interpreted the following: Other data: Transthoracic echocardiogram 10 July 2020 CONCLUSIONS Normal left ventricular size and systolic function, EF 60% . Abnormal septal motion consistent with conduction abnormality. Mild left ventricular hypertrophy. Grade I/IV diastolic dysfunction (abnormal relaxation filling pattern), normal to mildly elevated filling pressures. Moderate mitral valve regurgitation. Mildly increased left atrial size. Thickened aortic valve. Mild tricuspid valve regurgitation. Estimated pulmonary artery peak systolic pressure was 35 mmHg There is no pericardial effusion. There are no intracardiac masses. No previous study is available for comparison. Coronary angiogram 09 July 2020 Conclusions 1. Successful placement of temporary pacemaker. 2. No significant disease noted in the Left Main, LAD, Circumflex, or RCA coronary arteries. Carotid duplex 09 July 2020 CONCLUSIONS Bilateral ICA stenosis less than 50%. Minimal carotid atherosclerosis A&P Assessment and plan (1) Syncope: Status: Acute Qualifiers: Syncope type: unspecified Qualified Code(s): R55 - Syncope and collapse (2) Bradycardia: Status: Acute (3) Pacemaker: Status: Acute (4) Dyslipidemia: Status: Acute (5) Hypothyroidism: Status: Acute Qualifiers: Hypothyroidism type: unspecified Qualified Code(s): E03.9 - Hypothyroidism, unspecified Patient had high degree AV block. Significant pauses and syncopal episodes . - S/p coronary angiography not revealing significant coronary artery disease. Patient underwent permanent pacemaker placement on 10 July 2020. -Doing well post procedure. -Stable to be discharged home today. Follow-up with Ms. Thomas in [facility] week at [facility] and follow-up with Dr. Lopez in 6 to 8 weeks. Additional A&P Information Morbid obesity Thank you for allowing me to participate in patient's care. Please feel free to call with questions or concerns. Attestations Medical Necessity Statement*: Stable to be discharged home Time Spent in Patient Care: Greater than 35 minutes (>than 50% of time spent in counselling and/or direct pt care on unit) . Coding Level of Care Code Acute Inspector Shells for Kelli Ramirez Diagnoses Syncope R55 Syncope type: unspecified Bradycardia R00.1 Pacemaker Z95.0 Dyslipidemia E78.5 Hypothyroidism E03.9 Hypothyroidism type: unspecified
--- NOTE | 2020-07-12 13:35 | PM.DCS ---
Discharge Providers Date of Admission: 07/08/20 15:29 Date of Discharge: July 12, 2020 Attending Provider at Admission: Jona Cristobal MD Attending Provider at Discharge: Jona Cristobal MD Diagnoses at Discharge Discharge Diagnosis (1) Bradycardia: Status: Resolved Permanent problem details: High degree AV block with long sinus pause, status post pacemaker placement (2) Pacemaker: Status: Acute (3) Hypothyroidism: Status: Chronic (4) Dyslipidemia: Status: Chronic Reason for Visit Reason for Visit: Passout episodes Hospital Course Hospital Course Melony Che is a 64 year old female with PMH of DLD and hypothyroidism came in with c/o recurrent episodes of passing out started about a week back.Each episodes last about 15-20 secs accompanied with shaking of body followed by regain of consciousness,she deny any confusion after regaining consciousness.She was also complaining of rt sided chest tightness. Upon arrival in the ER she was worked up for recurrent syncopal episodes. 1st EKG which was done is markedly limited by artifacts.But it suggestive of high-grade AV block. Subsequent EKG : SINUS RHYTHM WITH SINUS ARRHYTHMIA WITH FIRST DEGREE AV BLOCK. RIGHT BUNDLE BRANCH BLOCK. LEFT ANTERIOR FASCICULAR BLOCK. Later on telemetry monitoring, it was found that she has high-grade AV block, with long sinus pauses. She had no other major electrolyte abnormalities. C.T head without : No evidence of active or acute intracranial pathologic process, hemorrhage, or trauma. C.T Abdomen and Pelvis with contrast : Cholelithiasis without acute cholecystitis. There is a large 2.7 cm stone in the gallbladder lumen. Pertinent Labs : Troponin : Baseline : 13, 2H : 12.15 2H D: -0.85, 6H : 11.74 , 6H D: -1.26 , TSH : 3.94, Free T4 : 1.66. She was having severely symptomatic bradycardia, resulting in recurrent syncopal episode. Resulting Initially in Rt femoral transvenous pacemaker placement, as well as she being placed on dopamine drip followed by dual-chamber pacemaker implantation.No events on telemetry. Patient underwent pacemaker interrogation post implantation ([employer] dual-chamber pacemaker DDD 60/110; a paced 8.7% and V paced 99.8%. Normal impedance of atrial and ventricular lead. CAG was also done which showed clean coronaries. 2D echo: Normal left ventricular size and systolic function, EF 60% . Abnormal septal motion consistent with conduction abnormality. Mild left ventricular hypertrophy. Grade I/IV diastolic dysfunction (abnormal relaxation filling pattern), normal to mildly elevated filling pressures. Moderate mitral valve regurgitation. Mildly increased left atrial size. Thickened aortic valve. Mild tricuspid valve regurgitation. Estimated pulmonary artery peak systolic pressure was 35 mmHg.There is no pericardial effusion. There are no intracardiac masses. Post pacemaker placement patient was symptom-free. She had no more episodes of syncope. Follow-up with Ms. Thomas in 1 week at [facility] and follow-up with Dr. Lopez in 6 to 8 weeks. Physical Exam Const: COMMON NORMALS: patient oriented x3 HENMT: COMMON NORMALS: normocephalic, atraumatic and external ears normal HEAD & SCALP: normocephalic and atraumatic EXTERNAL EAR: Yes external ears normal Eye: COMMON NORMALS: no scleral icterus GENERAL EYE: appearance normal, both eyes and all related structures Chest: COMMONS NORMALS: normal inspection of the chest and normal palpation of entire chest wall CHEST: Yes Symmetrical chest wall rise OTHER: normal inspection of the chest,normal palpation of entire chest wall. Surgical incision site is clean and dry Resp: COMMON NORMALS: normal respiratory effort, No retractions, No use of accessory muscles and clear to auscultation bilaterally EFFORT & INSPECTION: Yes symmetric chest movement AUSCULTATION: clear to auscultation bilaterally Cardio: COMMON NORMALS: regular rate, regular rhythm, S1 normal heart sound present, S2 normal heart sound present, No gallops present (Cardio), No murmurs present (Cardio), No rub (Cardio) and Peripheral pulses 2+ throughout RATE: regular rate RHYTHM: regular rhythm HEART SOUNDS: S1 normal heart sound present and S2 normal heart sound present PERIPHERAL PULSES: Peripheral pulses 2+ throughout GI: COMMON NORMALS: Normal to inspection, nondistended, normoactive bowel sounds present, Soft to palpation, non-tender, No hepatosplenomegaly present and no masses AUSCULTATION: Yes normoactive bowel sounds PALPATION: Yes Soft to palpation and Yes No hepatosplenomegaly present RECTAL EXAM: deferred Extremity: COMMON NORMALS: no clubbing, cyanosis or edema and no pedal edema Neuro: COMMON NORMALS: patient oriented x3 Discharge Data Data Completed and Pending: Completed Studies During Hospitalization Category Date Time Status CT abdomen pelvis w con* [id number] Stat Cat Scan 07/08/20 12:[address] head wo con* [id number] Routine Cat Scan 07/08/20 17:51 Completed HAT IRONER request for service Routin e Exams 07/09/20 07:00 Completed CXRP [XR chest 1V portable [id number]] R outine Exams 07/09/20 12:46 Completed CXRP [XR chest 1V portable [id number]] U rgent Exams 07/10/20 16:49 Completed XR chest 1V zully ble [id number] Stat Exams 07/08/20 11:50 Completed CV carotid duplex BI* [id number] Routine Ultrasound 07/09/20 07:00 Completed CV echo complete* [id number] Routine Ultrasound 07/10/20 13:00 [place] [id number] Routin e Ultrasound 07/09/20 07:00 Completed Pending at discharge Category Date Time Status Basic Metabolic P raheem AM LABS Lab 07/13/20 04:00 Ordered COVID [Coronaviru s Test Green Count y] Routine Lab 07/09/20 11:05 Received Complete Blood Co unt w/Auto AM LABS Lab 07/13/20 04:00 Ordered Labs from last 24 hours 07/12/20 07/12/20 04:40 04:40 WBC 6.2 RBC 4.16 Hgb 13.1 Hct 41.5 MCV 99.8 H MCH 31.5 MCHC 31.6 RDW 13.7 Plt Count 215 MPV 10.2 Neut % (Auto) 61.8 Lymph % (Auto) 23.1 [place] % (Auto) 7.9 Eos % (Auto) 6.9 Baso % (Auto) 0.3 Neut # (Auto) 3.83 Lymph # (Auto) 1.4 [place] # (Auto) 0.5 Eos # (Auto) 0.4 Baso # (Auto) 0.0 Nucleated RBC % (a uto) 0 Nucleated RBCs # 0.0 Sodium 139 Potassium 4.4 Chloride 103 Carbon Dioxide 31 H Anion Gap 9.4 BUN 10 Creatinine 0.6 GFR Calculation 101.0 Glucose 85 Calculated Osmolal ity 286 Calcium 8.6 Vitals: Last Vital Signs Temp 98 F 07/11/20 12:00 Pulse 86 07/12/20 13:00 Resp 14 07/12/20 13:00 BP 110/59 07/12/20 10:00 Pulse Ox 96 07/12/20 10:00 Discharge Plan Discharge Patient Disposition: Home Condition: Stable Prescriptions: New Percocet 5-325 mg tablet 1 tab PO Q8H PRN (Reason: pain) Qty: 14 RF: 0 Continued atorvastatin 40 mg Tablet 40 mg PO QPM RF: 0 levothyroxine 50 mcg Tablet 50 mcg PO DAILY RF: 0 Discharge Orders: Discharge Order (Routine); Ordered 07/12/20 Ordered By: Jona Cristobal Referrals: Michael Lopez M.D [Physician] - 6 Weeks Simin Thomas FNP [Nurse Practitioner] - 4-7 days (Post PPM placement) Discharge Diet: Regular Discharge Activity: Increase activity as tolerated Patient Instructions: Post Pacemaker - Lam Activity Restrictions/Additional Instructions: Please call Tuesday to schedule follow up appointments with your primary care provider and spinneret person. Discharge Attestations Time Spent in Discharge Care*: less than 30 min Specific Discharge Activities: educating patient, educating and/or supporting family/caregiver, discussing with pcp/other providers, discussing with top case assembler/social workers/dc planners, documenting/other paperwork and evaluating patient/reviewing data Status at Discharge: Cognitive status at discharge: cognitively intact, Behavioral status at discharge: cooperative, Functional status at discharge: independent ambulation Overall status at discharge: patient is back to baseline Quality Metrics Clinical Quality Measures During this hospital stay, did patient experience: None Coding Level of Care Code Acute Mechanical Manufacturing Engineer for Kelli Fwd Exam Comprehensive Diagnoses Bradycardia R00.1 Pacemaker Z95.0 Hypothyroidism E03.9 Dyslipidemia E78.5
[2020-07-13 14:52] LABS: Coronavirus Test Green County Not Detected
== END 2020-07-12 14:00 | disposition home or self-care (01) | DRG 244 ==
LOC: ER 15:41 → CSU 16:08 → ICU 07-09 04:16
PROVIDERS: Internal Medicine; Thoracic Surgery (Cardiothoracic Vascular Surgery); Admitting Provider Internal Medicine; Emergency Provider Family Medicine; Visit Provider Internal Medicine
PROC: B2151ZZ Fluoroscopy of Left Heart using Low Osmolar Contrast (ICD-10-PCS; principal; 2020-07-09 07:00)
PROC: 0JH606Z Insertion of Pacemaker, Dual Chamber into Chest Subcutaneous Tissue and Fascia, Open Approach (ICD-10-PCS; principal; 2020-07-10 11:00)
DX: I44.2 Atrioventricular block, complete (principal); R55 Syncope and collapse; E03.9 Hypothyroidism, unspecified; E78.5 Hyperlipidemia, unspecified; R00.1 Bradycardia, unspecified
CPT/HCPCS: 33210; 36415; 70450; 71045; 74177; 76000; 80048; 80053; 80061; 82550; 83036; 83735; 84439; 84443; 84484; 85025; 87635; 93005; 93306; 93452; 93880; 93970; 96365; 96372; 97116; 97162; 97166; 97535; 99285; C1769; C1779; C1786; C1887; C1894; J0690; J1265; J1644; J1650; J2250; J2405; J2704; J3010; J3490; J7030; Q0163; Q9967

== ENCOUNTER → 2021-09-04 10:05 | Outpatient (BNVA) | payer MEDICARE, SELFPAY | PROVIDERS: PCP Electrodiagnostic Medicine; Visit Provider Internal Medicine | DX: Z45.010 Encounter for checking and testing of cardiac pacemaker pulse generator [battery] (principal) | CPT/HCPCS: 93280 ==

== ENCOUNTER 2021-09-16 06:00 | Outpatient (RCR) | payer MEDICARE, SELFPAY | END 2021-09-19 23:59 | disposition home or self-care (01) | LOC: SPT 06:00 | PROVIDERS: PCP Electrodiagnostic Medicine; Referring Provider Electrodiagnostic Medicine; Visit Provider Electrodiagnostic Medicine | DX: R60.0 Localized edema (principal); L97.909 Non-pressure chronic ulcer of unspecified part of unspecified lower leg with unspecified severity; R60.9 Edema, unspecified | CPT/HCPCS: 97162 ==

== ENCOUNTER 2021-09-20 | Outpatient (RCR) | payer MEDICARE, SELFPAY | END 2021-10-20 23:59 | disposition home or self-care (01) | LOC: SPT | PROVIDERS: PCP Electrodiagnostic Medicine; Referring Provider Electrodiagnostic Medicine; Visit Provider Electrodiagnostic Medicine | DX: R60.0 Localized edema (principal); L97.909 Non-pressure chronic ulcer of unspecified part of unspecified lower leg with unspecified severity | CPT/HCPCS: 29581; 97140 ==

== ENCOUNTER 2021-10-21 06:00 | Outpatient (RCR) | payer MEDICARE, SELFPAY | END 2021-11-19 23:59 | disposition home or self-care (01) | LOC: SPT 06:00 | PROVIDERS: PCP Electrodiagnostic Medicine; Referring Provider Electrodiagnostic Medicine; Visit Provider Electrodiagnostic Medicine | DX: R60.0 Localized edema (principal); L97.909 Non-pressure chronic ulcer of unspecified part of unspecified lower leg with unspecified severity | CPT/HCPCS: 29581; 97140 ==

== ENCOUNTER 2021-11-03 10:57 | Outpatient (CLI) | payer MEDICARE, SELFPAY ==
--- NOTE | 2021-11-03 | XR_ITS ---
WS: [id number] KUB, AP view, 11/03/2021 Clinical Data: ABDOMINAL PAIN Comparison: None. Findings: No abnormal intraabdominal masses or calcifications are seen. There is no dilatated small bowel or ev idence of obstruction. There is a large amount of fecal gas and debris obscuring detail over both kidneys. There are phlebol iths in the true pelvis. XR/XR abdomen 1V* [id number] Impression: Negative KUB.
== END 2021-11-03 10:58 | disposition home or self-care (01) ==
LOC: RADOUTREAD 11-04 11:01
PROVIDERS: PCP Electrodiagnostic Medicine; Visit Provider Electrodiagnostic Medicine
DX: R10.9 Unspecified abdominal pain (principal)
CPT/HCPCS: 74018

== ENCOUNTER → 2021-12-02 15:30 | Outpatient (BNVA) | payer MEDICARE, SELFPAY | PROVIDERS: PCP Electrodiagnostic Medicine; Visit Provider Internal Medicine | DX: I48.91 Unspecified atrial fibrillation (principal); M10.9 Gout, unspecified; E78.5 Hyperlipidemia, unspecified; Z95.0 Presence of cardiac pacemaker | CPT/HCPCS: 99213; 99214 ==

== ENCOUNTER → 2021-12-25 11:40 | Outpatient (BNVA) | payer MEDICARE, SELFPAY | PROVIDERS: PCP Electrodiagnostic Medicine; Visit Provider Internal Medicine | DX: Z45.010 Encounter for checking and testing of cardiac pacemaker pulse generator [battery] (principal) | CPT/HCPCS: 93280 ==

== ENCOUNTER → 2022-04-09 11:41 | Outpatient (BNVA) | payer MEDICARE, SELFPAY | PROVIDERS: PCP Electrodiagnostic Medicine; Visit Provider Internal Medicine | DX: Z45.010 Encounter for checking and testing of cardiac pacemaker pulse generator [battery] (principal) | CPT/HCPCS: 93280 ==

== ENCOUNTER → 2022-06-02 15:02 | Outpatient (BNVA) | payer MEDICARE, SELFPAY | PROVIDERS: PCP Electrodiagnostic Medicine; Visit Provider Internal Medicine | DX: I48.91 Unspecified atrial fibrillation (principal); M10.9 Gout, unspecified; R00.1 Bradycardia, unspecified; E78.5 Hyperlipidemia, unspecified; Z95.0 Presence of cardiac pacemaker | CPT/HCPCS: 99214 ==

== ENCOUNTER → 2022-12-01 15:27 | Outpatient (BNVA) | payer MEDICARE, SELFPAY | PROVIDERS: PCP Electrodiagnostic Medicine; Visit Provider Nurse Practitioner Family | DX: I48.0 Paroxysmal atrial fibrillation (principal); Z95.0 Presence of cardiac pacemaker; Z79.82 Long term (current) use of aspirin | CPT/HCPCS: 99214 ==

== ENCOUNTER → 2023-03-22 14:07 | Outpatient (BNVA) | payer MEDICARE, SELFPAY | PROVIDERS: PCP Electrodiagnostic Medicine; Visit Provider Internal Medicine | DX: M10.9 Gout, unspecified (principal); R00.1 Bradycardia, unspecified; E78.5 Hyperlipidemia, unspecified; Z95.0 Presence of cardiac pacemaker; I48.91 Unspecified atrial fibrillation; Z79.01 Long term (current) use of anticoagulants | CPT/HCPCS: 99214 ==

== ENCOUNTER → 2023-08-05 10:48 | Outpatient (BNVA) | payer MEDICARE, SELFPAY | PROVIDERS: PCP Electrodiagnostic Medicine; Visit Provider Internal Medicine | DX: Z53.9 Procedure and treatment not carried out, unspecified reason (principal) | CPT/HCPCS: 93280 ==

== ENCOUNTER → 2023-09-20 14:52 | Outpatient (BNVA) | payer MEDICARE, SELFPAY | PROVIDERS: PCP Electrodiagnostic Medicine; Visit Provider Internal Medicine | DX: R00.1 Bradycardia, unspecified (principal); M10.9 Gout, unspecified; E78.5 Hyperlipidemia, unspecified; Z95.0 Presence of cardiac pacemaker; I48.91 Unspecified atrial fibrillation; Z87.891 Personal history of nicotine dependence; Z79.01 Long term (current) use of anticoagulants | CPT/HCPCS: 99214 ==

== ENCOUNTER → 2024-05-15 10:15 | Outpatient (BNVA) | payer MEDICARE, SELFPAY | PROVIDERS: PCP Electrodiagnostic Medicine; Visit Provider Internal Medicine | DX: R00.1 Bradycardia, unspecified (principal); E78.5 Hyperlipidemia, unspecified; Z95.0 Presence of cardiac pacemaker; I48.91 Unspecified atrial fibrillation; Z79.01 Long term (current) use of anticoagulants | CPT/HCPCS: 99213 ==

== ENCOUNTER → 2024-05-25 11:45 | Outpatient (BNVA) | payer MEDICARE, SELFPAY | PROVIDERS: PCP Electrodiagnostic Medicine; Visit Provider Internal Medicine | DX: Z45.018 Encounter for adjustment and management of other part of cardiac pacemaker (principal) | CPT/HCPCS: 93280 ==

== ENCOUNTER 2024-06-11 14:20 | Outpatient (CLI) | payer MEDICARE, SELFPAY ==
--- NOTE | 2024-06-11 14:23 | MM_ITS ---
WS: [id number] BILATERAL 3D TOMOSYNTHESIS DIGITAL SCREENING MAMMOGRAM WITH CAD CLINICAL INFORMATION: SCREENING HISTORY: Screening mammogram. No current complaints. COMPARISON: 2018 TECHNIQUE: Bilateral CC and MLO views. FINDINGS: Fatty-replaced breasts bilaterally. No suspicious focal mass, asymmetry, calcifications, or identity access management architect ural distortion. No evidence of malignancy. Incidental punctate and lucent centered calcifications. MM/MM scr tomosynthesis [id number] IMPRESSION: DENSITY: There are scattered areas of fibroglandular density. BI-RADS: 2 - Benign. FOLLOW UP: 1 Year Follow-up Recommend return to annual screening mammography.
== END 2024-06-11 14:21 | disposition home or self-care (01) ==
LOC: RAD 14:21
PROVIDERS: PCP Electrodiagnostic Medicine; Visit Provider Electrodiagnostic Medicine
DX: Z12.31 Encounter for screening mammogram for malignant neoplasm of breast (principal); R92.313 Mammographic fatty tissue density, bilateral breasts; R92.1 Mammographic calcification found on diagnostic imaging of breast; R92.323 Mammographic fibroglandular density, bilateral breasts
CPT/HCPCS: 77063; 77067

== ENCOUNTER → 2024-12-06 11:46 | Outpatient (BNVA) | payer MEDICARE, SELFPAY | PROVIDERS: PCP Electrodiagnostic Medicine; Visit Provider Internal Medicine | DX: Z45.018 Encounter for adjustment and management of other part of cardiac pacemaker (principal) | CPT/HCPCS: 93296 ==

== ENCOUNTER → 2025-02-21 13:01 | Outpatient (BNVA) | payer MEDICARE, SELFPAY | PROVIDERS: PCP Electrodiagnostic Medicine; Visit Provider Internal Medicine | DX: I48.91 Unspecified atrial fibrillation (principal); Z95.0 Presence of cardiac pacemaker; Z79.01 Long term (current) use of anticoagulants; Z87.891 Personal history of nicotine dependence | CPT/HCPCS: 99214 ==

== ENCOUNTER → 2025-05-22 13:19 | Outpatient (BNVA) | payer MEDICARE, SELFPAY | PROVIDERS: PCP Electrodiagnostic Medicine; Visit Provider Internal Medicine | DX: Z45.018 Encounter for adjustment and management of other part of cardiac pacemaker (principal) | CPT/HCPCS: 93296 ==